=== PATIENT | female | born 1945 | race Caucasian/White ===

== ENCOUNTER 2016-04-26 20:03 | Emergency (ER) | payer MEDICARE ==
--- NOTE | 2016-04-26 21:20 | EKG REPORT ---
SEVERITY:- ABNORMAL ECG - SINUS RHYTHM FIRST DEGREE AV BLOCK : Confirmed by: Roman Fraser MD 26-Apr-2016 21:20:05
[2016-04-26] MEDS ORDERED: ASPIRIN 81 MG TABLET, CHEWABLE PO ONE (21:25)
[2016-04-26 21:38] LABS: ABSOLUTE BASOPHILS # (AUTO) 0.1 10^3/uL (0.0-0.2); ABSOLUTE EOSINOPHILS # (AUTO) 0.8 10^3/uL (0.0-0.6); ABSOLUTE LYMPHOCYTES (AUTO) 3.7 10^3/uL (0.5-4.7); ABSOLUTE MONOCYTES (AUTO) 0.8 10^3/uL (0.1-1.4); EOSINOPHILS % (AUTO) 7.3 % (0-6); HEMATOCRIT 33.5 % (36.0-47.0); HGB HCT DIFFERENCE -0.5; LYMPHOCYTES % (AUTO) 32.7 % (13-45); MEAN CORPUSCULAR HEMOGLOBIN 30.8 pg (27.0-33.4); MEAN CORPUSCULAR VOLUME 93 fl (80-97); MONOCYTES % (AUTO) 6.6 % (3-13); RED BLOOD COUNT 3.58 10^6/uL (3.72-5.28); RED CELL DISTRIBUTION WIDTH 13.6 % (11.5-14.0); SEGMENTED NEUTROPHILS % (AUTO) 52.4 % (42-78); WHITE BLOOD COUNT 11.4 10^3/uL (4.0-10.5)
[2016-04-26 21:41] LABS: ALANINE AMINOTRANSFERASE 27 U/L (9-52); ALKALINE PHOSPHATASE 92 U/L (38-126); ANION GAP 12 (5-19); ASPARTATE AMINO TRANSFERASE 16 U/L (14-36); BILIRUBIN,TOTAL 0.4 mg/dL (0.2-1.3); BLOOD UREA NITROGEN 16 mg/dL (7-20); CALCIUM 9.9 mg/dL (8.4-10.2); CARBON DIOXIDE 28 mmol/L (22-30); CHLORIDE 99 mmol/L (98-107); CREATININE RESULT 0.72 mg/dL (0.52-1.25); GLUCOSE 139 mg/dL (75-110); LIPASE 89.6 U/L (23-300); MAGNESIUM 1.7 mg/dL (1.6-2.3); POTASSIUM 4.6 mmol/L (3.6-5.0); SODIUM 139.4 mmol/L (137-145); TOTAL PROTEIN 6.9 g/dL (6.3-8.2)
[2016-04-26 21:42] LABS: CREATINE KINASE < 20 U/L (30-135)
[2016-04-26 21:52] LABS: PROTHROMBIN TIME 13.4 SEC (11.4-15.4)
[2016-04-26 21:53] LABS: CREATINE KINASE MB 0.52 ng/mL (<4.55); TROPONIN I < 0.012 ng/mL
[2016-04-26] MEDS ORDERED: ONDANSETRON HCL INJ/PF 4 MG/2 ML SDV IV ONE (23:47)
--- NOTE | 2016-04-27 00:10 | ER Document Report ---
ED General - General Chief Complaint: Palpitations Stated Complaint: PALPITATIONS TRAVEL OUTSIDE OF THE [place] IN LAST 30 DAYS: No - HPI Patient complains to provider of: palpitations Notes: Patient with a recent aortic valve replacement and bypass surgery performed [facility] proximal vertebral weeks prior to arrival patient is now currently at local intermediate rehabilitation facility. States prior to arrival developed some palpitations. Patient states this lasted for approximately 30 minutes however upon evaluating patient patient now is astigmatic denies any dizziness chest pain abdominal pain filling of passing out while palpitations were ongoing. No fevers and chills no nausea no vomiting - Related Data Allergies/Adverse Reactions: metaxalone [From Skelaxin] Allergy (Verified 04/26/16 21:22) olmesartan medoxomil [From Benicar] Allergy (Verified 04/26/16 21:22) red dye [Red Dye] Allergy (Verified 04/26/16 21:22) Sulfa (Sulfonamide Antibiotics) Allergy (Verified 04/26/16 21:22) Past Medical History - General Information source: Patient, Outside Facility Records - Social History Smoking Status: Never Smoker Chew tobacco use (# tins/day): No Frequency of alcohol use: None Drug Abuse: None Family History: CVA, Malignancy Patient has suicidal ideation: No Patient has homicidal ideation: No - Past Medical History Cardiac Medical History: Reports: Hx Coronary Artery Disease, Hx Hypertension Endocrine Medical History: Reports: Hx Diabetes Mellitus Type 2 Past Surgical History: Reports: Hx Carotid Endarterectomy, Hx Hysterectomy, Hx Orthopedic Surgery - 2 shoulder replacements - Immunizations Hx Diphtheria, Pertussis, Tetanus Vaccination: No Hx Pneumococcal Vaccination: 04/26/09 Review of Systems - Review of Systems Constitutional: No symptoms reported EENT: No symptoms reported Cardiovascular: Palpitations Respiratory: No symptoms reported Gastrointestinal: No symptoms reported Genitourinary: No symptoms reported Female Genitourinary: No symptoms reported Musculoskeletal: No symptoms reported Skin: No symptoms reported Hematologic/Lymphatic: No symptoms reported Neurological/Psychological: No symptoms reported Physical Exam - Vital signs Vitals: Resp Pulse Ox 15 99 04/26/16 20:20 04/26/16 20:20 Interpretation: Normal - General General appearance: Appears well, Alert - HEENT Head: Normocephalic, Atraumatic Eyes: Normal Pupils: PERRL - Respiratory Respiratory status: No respiratory distress Chest status: Nontender Breath sounds: Normal Chest palpation: Normal - Cardiovascular Rhythm: Regular Heart sounds: Normal auscultation Murmur: No Systolic murmur grade 1-6: 3 - Abdominal Inspection: Normal Distension: No distension Bowel sounds: Normal Tenderness: Nontender Organomegaly: No organomegaly - Back Back: Normal, Nontender - Extremities General upper extremity: Normal inspection, Nontender, Normal color, Normal ROM , Normal temperature General lower extremity: Normal inspection, Nontender, Normal color, Normal ROM , Normal temperature, Normal weight bearing. No: Claudia's sign - Neurological Neuro grossly intact: Yes Cognition: Normal Orientation: AAOx4 Oliver Coma Scale Eye Opening: Spontaneous Thanh Coma Scale Verbal: Oriented Oliver Coma Scale Motor: Obeys Commands Oliver Coma Scale Total: 15 Speech: Normal Motor strength normal: LUE, RUE, LLE, RLE Sensory: Normal - Psychological Associated symptoms: Normal affect, Normal mood - Skin Skin Temperature: Warm Skin Moisture: Dry Skin Color: Normal Course - Re-evaluation Re-evalutation: 04/27/16 00:06 Patient coming in for palpitations. Patient with a recent CABG and aortic valve replacement after which had episodes of atrial fibrillation at [facility] postop. Discussed case with Dr. Daugherty initially stated patient could be discharged home. Prior to discharge patient did have an episode of bradycardia EKG was repeated showing some signs of facial for ablation with a rate of 67 monitor that showed episode where the patient bradycardia down to the 30s. Patient during this time was astigmatic no palpitations and dizziness patient did not pass out. Again contacted Dr. Daugherty [facility] still recommend patient safe for discharge home he will follow-up with the patient in one week. Discussed this plan with patient patient agrees 04/27/16 03:16 - Vital Signs Vital signs: Temp Pulse Resp BP Pulse Ox 98.2 F 72 12 103/67 99 04/27/16 00:30 04/26/16 20:22 04/27/16 00:31 04/27/16 00:32 04/27/16 00:32 - Laboratory Result Diagrams: 04/26/16 20:22 04/26/16 20:22 Laboratory results interpreted by me: 04/26/16 04/26/16 04/27/16 20:22 20:22 00:02 WBC 11.4 H RBC 3.58 L Hgb 11.0 L Hct 33.5 L Plt Count 476 H Eosinophils % 7.3 H Absolute Eosinophils 0.8 H Glucose 139 H POC Glucose 135 H Creatine Kinase < 20 L Discharge - Discharge Clinical Impression: Palpitation Atrial fibrillation Qualifiers: Atrial fibrillation type: unspecified Qualified Code(s): I48.91 - Unspecified atrial fibrillation Condition: Good Disposition: HOME, SELF-CARE Instructions: Atrial Fibrillation ([facility]), Palpitations (Irregular or Rapid Heartrate) ([facility]) Additional Instructions: Your rhythm strips night shows signs of atrial fibrillation this morning likely why you are having palpitations. Your labwork shows no critical pathology no signs of heart damage no electrolyte imbalances. I did discuss your case with the covering technical operator at [facility]. At this time no need for any emergent admission to the hospital for emergent transfer he did recommend that she follow-up with your technical operator within about a week. Please call your technical operator tomorrow to schedule that appointment. Return to ER symptoms worsen.
[2016-04-27 00:33] VITALS: BP 103/67
--- NOTE | 2016-04-27 12:23 | EKG REPORT ---
SEVERITY:- ABNORMAL ECG - SINUS RHYTHM WITH BLOCKED APCs,CANNOT R/O SA [place] NONSPECIFIC T ABNORMALITIES, ANT-LAT LEADS : Confirmed by: Tavia Callahan 27-Apr-2016 12:23:24
== END 2016-04-27 00:38 | disposition home or self-care (01) ==
LOC: ER 20:03
DX: R00.2 Palpitations (principal); I48.91 Unspecified atrial fibrillation; I25.10 Atherosclerotic heart disease of native coronary artery without angina pectoris; I10 Essential (primary) hypertension; E11.9 Type 2 diabetes mellitus without complications; Z95.2 Presence of prosthetic heart valve; Z95.1 Presence of aortocoronary bypass graft; Z88.2 Allergy status to sulfonamides; Z90.710 Acquired absence of both cervix and uterus; Z96.619 Presence of unspecified artificial shoulder joint
CPT/HCPCS: 93005; 99285; 96374; 36415; 82553; 82962; 82550; 83690; 83735; 85025; 85610; 80053; 84484; 71020; 93010; J2405

== ENCOUNTER → 2016-04-29 | Outpatient (CLI) | payer MEDICARE ==
[2016-04-29 10:12] LABS: ARTERIAL BLOOD BASE EXCESS 0.5 mmol/L; ARTERIAL BLOOD O2 SATURATION 97.3 % (94-98)
--- NOTE | 2016-04-30 08:32 | INCOMPLETE PFT LETTER ---
On 04/29/16, [facility] I : 1945 presented to [facility] for a Pulmonary Function Test. Attempts were made to perform the test but the patient was unable to perform adequately due to pain at surgical site. ABG and DLCO completed. Please feel free to contact us for any further questions and to reschedule if desired. Sincerely, Respiratory Care Department [facility]
== END ==
LOC: RT 08:25
PROVIDERS: ATTEND Family Medicine Geriatric Medicine
DX: J42 Unspecified chronic bronchitis (principal); R91.8 Other nonspecific abnormal finding of lung field
CPT/HCPCS: 36600; 82803; 94760

== ENCOUNTER 2016-05-22 11:43 | Emergency (ER) | payer MEDICARE, OTHER ==
--- NOTE | 2016-05-22 11:59 | ER Document Report ---
ED Medical Screen (RME) - General Stated Complaint: ABSCESS ON BACK Time seen by provider: 11:57 Mode of Arrival: Ambulatory Information source: Patient Notes: 70-year-old female presents to ED for a lump on her mid back that has been there for about a year. States that he just started being painful and now yesterday it started leaking. The area is purple for the last couple days. There is a large abscess on her back. I have greeted and performed a rapid initial assessment of this patient. A comprehensive ED assessment and evaluation of the patient, analysis of test results and completion of medical decision making process will be conducted by an additional ED providers. TRAVEL OUTSIDE OF THE [place] IN LAST 30 DAYS: No - Related Data Allergies/Adverse Reactions: metaxalone [From Skelaxin] Allergy (Verified 05/22/16 11:57) olmesartan medoxomil [From Benicar] Allergy (Verified 05/22/16 11:57) red dye [Red Dye] Allergy (Verified 05/22/16 11:57) Sulfa (Sulfonamide Antibiotics) Allergy (Verified 05/22/16 11:57) Past Medical History - Past Medical History Cardiac Medical History: Reports: Hx Coronary Artery Disease, Hx Hypertension Endocrine Medical History: Reports: Hx Diabetes Mellitus Type 2 Past Surgical History: Reports: Hx Carotid Endarterectomy, Hx Hysterectomy, Hx Orthopedic Surgery - 2 shoulder replacements - Immunizations Hx Diphtheria, Pertussis, Tetanus Vaccination: No
[2016-05-22] MEDS ORDERED: CLINDAMYCIN HCL 150 MG CAPSULE PO ONE (14:33)
--- NOTE | 2016-05-22 14:34 | ER Document Report ---
HPI - HPI Patient complains to provider of: wound recheck <GLENDA ADAMES - Last Filed: 05/24/16 14:05> - HPI Patient complains to provider of: abscess Onset: Other - cyst there for years, red and leaking for several days, larger Onset/Duration: Gradual Quality of pain: Throbbing Pain Level: 3 Context: 71 yo diabetic with hx back cyst for years noticed it getting larger and more red recently since having to lay on back more, and now leaking. No fever. No myalgia's. Associated Symptoms: None Exacerbated by: Other - laying on back Relieved by: Denies Similar symptoms previously: No Recently seen / treated by doctor: No - ROS ROS below otherwise negative: Yes Systems Reviewed and Negative: Yes All other systems reviewed and negative - REPRODUCTIVE Reproductive: DENIES: : - DERM Skin Color: Normal <KIRSTY NAIDU - Last Filed: 05/24/16 17:57> Past Medical History - General Information source: Patient - Social History Smoking Status: Never Smoker Chew tobacco use (# tins/day): No Frequency of alcohol use: None Drug Abuse: None Lives with: Family Family History: CVA, Malignancy Patient has suicidal ideation: No Patient has homicidal ideation: No - Past Medical History Cardiac Medical History: Reports: Hx Coronary Artery Disease, Hx Hypertension Endocrine Medical History: Reports: Hx Diabetes Mellitus Type 2 Renal/ Medical History: Denies: Hx Peritoneal Dialysis Past Surgical History: Reports: Hx Carotid Endarterectomy, Hx Hysterectomy, Hx Orthopedic Surgery - 2 shoulder replacements - Immunizations Hx Diphtheria, Pertussis, Tetanus Vaccination: No Hx Pneumococcal Vaccination: 04/26/09 <KIRSTY NAIDU - Last Filed: 05/24/16 17:57> Vertical Provider Document - CONSTITUTIONAL Agree With Documented VS: Yes Exam Limitations: No Limitations General Appearance: No Apparent Distress - INFECTION CONTROL TRAVEL OUTSIDE OF THE [place] IN LAST 30 DAYS: No - HEENT HEENT: Normocephalic - NECK Neck: Supple - RESPIRATORY Respiratory: Breath Sounds Normal, No Respiratory Distress - CARDIOVASCULAR Cardiovascular: Regular Rate, Regular Rhythm - BACK Notes: red flucuant sebaceous abscess, 4 cm erythema, no cellulitis - MUSCULOSKELETAL/EXTREMETIES Musculoskeletal/Extremeties: YASSINE VILLALOBOS - NEURO Level of Consciousness: Awake, Alert - DERM Integumentary: Abscess <KIRSTY NAIDU - Last Filed: 05/24/16 17:57> Course - Vital Signs Vital signs: Temp Pulse Resp BP Pulse Ox 97.9 F 70 16 160/75 H 99 05/22/16 15:49 05/22/16 15:49 05/22/16 15:49 05/22/16 15:49 05/22/16 15:49 <GLENDA ADAMES - Last Filed: 05/24/16 14:05> - Re-evaluation Re-evalutation: 05/22/16 15:20 I have consulted with the supervisory physician dr crespo per [facility] APC Guidelines. <KIRSTY NAIDU - Last Filed: 05/24/16 17:57> Procedures - Incision and Drainage Back Time completed: 15:24 Type: Simple Anesthetic type: 1% Lidocaine mL's of anesthetic: 4 Blade size: 11 - x cut I&D procedure: Betadine prep applied Incision Method: Incision made by scalpel - x cut, cyst sac unabl to be retrieved but after 80 ml irrigation, only blood irrigates and palpates out, corner of 4 x 4 packed wound. Told pt that for complete resolution, may have to see surgeon to get the whole cyst removed it recurs. Amount/type of drainage: large sebaceous and pus Adult Front & Back picture: 1 - abscess site <KIRSYT NAIDU - Last Filed: 05/24/16 17:57> Discharge <GLENDA ADAMES - Last Filed: 05/24/16 14:05> <KIRSTY NAIDU - Last Filed: 05/24/16 17:57> - Discharge Clinical Impression: i and d sebaceous abscess Condition: Good Disposition: HOME, SELF-CARE Instructions: Abscess ([facility]), Post Incision and Drainage, Clindamycin ([facility]), Warm Packs ([facility]), Acetaminophen Additional Instructions: keep dressing on for 2 days wound recheck in ER on wednesday then begin showering with someone to use washclothe scrub to back and let the water irrigate it out see general surgery if this persists and keeps coming back to er if you feel sick monitor your glucoses carefully, if elevates return to ER eat with the clindamycin Please complete the patient satisfaction survey if you get one, and return it.. If you do not receive a survey, then you can go to the [facility] website, [email or web address] and place your comments about your very good care. Thank you very much. It was a pleasure being your medical provider today. Prescriptions: Clindamycin HCl [Cleocin 150 mg Capsule] 300 mg PO QID #56 capsule Referrals: SUHAS MORENO, ZEESHAN-C [Primary Care Provider] - Follow up as needed
[2016-05-22 16:06] VITALS: BP 160/75
== END 2016-05-22 15:50 | disposition home or self-care (01) ==
LOC: ER 11:43
PROC: 0H96XZZ Drainage of Back Skin, External Approach (ICD-10-PCS; principal; 2016-05-22)
DX: L02.212 Cutaneous abscess of back [any part, except buttock and flank] (principal); I25.10 Atherosclerotic heart disease of native coronary artery without angina pectoris; I10 Essential (primary) hypertension; E11.9 Type 2 diabetes mellitus without complications; Z90.710 Acquired absence of both cervix and uterus; Z96.619 Presence of unspecified artificial shoulder joint
CPT/HCPCS: 99283; 87070; 87205; 87075; 87077; 10060; A9270; 87186

== ENCOUNTER 2016-05-24 12:54 | Emergency (ER) | payer MEDICARE, OTHER ==
[2016-05-24 13:07] VITALS: BP 96/79
--- NOTE | 2016-05-24 13:10 | ER Document Report ---
ED Medical Screen (RME) - General Stated Complaint: WOUND CHECK Notes: I&D recheck initially performed wednesday I greeted and performed a rapid initial assessment of this patient. Comprehensive ED assessment and evaluation of the patient, analysis of test results and completion of the medical decision making process will be conducted by additional ED providers. TRAVEL OUTSIDE OF THE [place] IN LAST 30 DAYS: No - Related Data Allergies/Adverse Reactions: metaxalone [From Skelaxin] Allergy (Verified 05/22/16 11:57) olmesartan medoxomil [From Benicar] Allergy (Verified 05/22/16 11:57) red dye [Red Dye] Allergy (Verified 05/22/16 11:57) Sulfa (Sulfonamide Antibiotics) Allergy (Verified 05/22/16 11:57) Past Medical History - Past Medical History Cardiac Medical History: Reports: Hx Coronary Artery Disease, Hx Hypercholesterolemia, Hx Hypertension Endocrine Medical History: Reports: Hx Diabetes Mellitus Type 2 Renal/ Medical History: Denies: Hx Peritoneal Dialysis Past Surgical History: Reports: Hx Carotid Endarterectomy, Hx Hysterectomy, Hx Orthopedic Surgery - 2 shoulder replacements - Immunizations Hx Diphtheria, Pertussis, Tetanus Vaccination: No Physical Exam - Vital signs Vitals: Temp Pulse Resp BP Pulse Ox 97.8 F 69 22 H 96/79 L 97 05/24/16 13:06 05/24/16 13:06 05/24/16 13:06 05/24/16 13:06 05/24/16 13:06 Course - Vital Signs Vital signs: Temp Pulse Resp BP Pulse Ox 97.8 F 69 22 H 96/79 L 97 05/24/16 13:06 05/24/16 13:06 05/24/16 13:06 05/24/16 13:06 05/24/16 13:06
--- NOTE | 2016-05-24 14:23 | ER Document Report ---
HPI - HPI Patient complains to provider of: wound recheck Pain Level: 1 Context: pateint is 71 year old female who had an I&D of a sebaceous cyst on wednesday and is here for wound recheck. states she had had minimal drainage through the bandage but otherwise denies any pain. no fevers, chills, has been compliant with PO abx - CARDIOVASCULAR Cardiovascular: DENIES: Chest pain - REPRODUCTIVE Reproductive: DENIES: : - DERM Skin Color: Normal Past Medical History - General Information source: Patient - Social History Smoking Status: Never Smoker Chew tobacco use (# tins/day): No Frequency of alcohol use: None Drug Abuse: None Family History: CVA, Malignancy Patient has suicidal ideation: No Patient has homicidal ideation: No - Past Medical History Cardiac Medical History: Reports: Hx Coronary Artery Disease, Hx Hypercholesterolemia, Hx Hypertension Endocrine Medical History: Reports: Hx Diabetes Mellitus Type 2 Renal/ Medical History: Denies: Hx Peritoneal Dialysis Past Surgical History: Reports: Hx Carotid Endarterectomy, Hx Hysterectomy, Hx Orthopedic Surgery - 2 shoulder replacements - Immunizations Hx Diphtheria, Pertussis, Tetanus Vaccination: No Hx Pneumococcal Vaccination: 04/26/09 Vertical Provider Document - CONSTITUTIONAL Agree With Documented VS: Yes Exam Limitations: No Limitations - INFECTION CONTROL TRAVEL OUTSIDE OF THE [place] IN LAST 30 DAYS: No - RESPIRATORY O2 Sat by Pulse Oximetry: 97 - DERM Integumentary: Warm, Dry, Abscess - previous IandD of sebaccous cyst with evidence of retained contents, superficial erythema about 4cm in diameter, no edema Course - Re-evaluation Re-evalutation: 05/24/16 14:20 site emptied of retained contents and packed with 1/4in WTD packing and covered with dry gauze. can f/u with PCP or return to the ED in 2 days with family for education on wound care. - Vital Signs Vital signs: Temp Pulse Resp BP Pulse Ox 97.8 F 69 22 H 96/79 L 97 05/24/16 13:06 05/24/16 13:06 05/24/16 13:06 05/24/16 13:06 05/24/16 13:06 Discharge - Discharge Clinical Impression: Wound check, abscess Condition: Good Disposition: HOME, SELF-CARE Additional Instructions: -Packing will need to be changed in 2-3 days -Please follow up with your primary care provider or the ER for wound check in 2 days. Please bring a family member along for wound dressing education. -Continue to take your antibiotic as prescribed -You can take ibuprofen or acetaminophen as needed for pain.
== END 2016-05-24 14:34 | disposition home or self-care (01) ==
LOC: ER 12:54
DX: Z48.01 Encounter for change or removal of surgical wound dressing (principal); L02.91 Cutaneous abscess, unspecified; E11.9 Type 2 diabetes mellitus without complications; I25.10 Atherosclerotic heart disease of native coronary artery without angina pectoris; I10 Essential (primary) hypertension
CPT/HCPCS: 99282

== ENCOUNTER 2016-05-26 13:48 | Emergency (ER) | payer MEDICARE, OTHER, MEDICAID ==
[2016-05-26 13:57] VITALS: BP 151/55
--- NOTE | 2016-05-26 14:20 | ER Document Report ---
ED Medical Screen (RME) - General Stated Complaint: WOUND CHECK Time seen by provider: 14:17 Mode of Arrival: Ambulatory Information source: Patient TRAVEL OUTSIDE OF THE [place] IN LAST 30 DAYS: No - HPI Patient complains to provider of: WOUND CHECK Onset: Other - INITIALLY WEDNESDAY, THEN AGAIN WEDNESDAY Onset/Duration: Gradual Context: CYST OPENED TWO DAYS AGO AND PACKED, HERE FOR RECHECK Quality of pain: Dull Severity: Mild Pain Level: 1 Associated Symptoms: None Exacerbated by: Denies Relieved by: Denies Similar symptoms previously: Yes Recently seen / treated by doctor: Yes - Related Data Smoking: Non-smoker Frequency of alcohol use: None Drug Abuse: None Allergies/Adverse Reactions: metaxalone [From Skelaxin] Allergy (Verified 05/26/16 14:16) olmesartan medoxomil [From Benicar] Allergy (Verified 05/26/16 14:16) red dye [Red Dye] Allergy (Verified 05/26/16 14:16) Sulfa (Sulfonamide Antibiotics) Allergy (Verified 05/26/16 14:16) Past Medical History - Past Medical History Cardiac Medical History: Reports: Hx Coronary Artery Disease, Hx Hypercholesterolemia, Hx Hypertension Endocrine Medical History: Reports: Hx Diabetes Mellitus Type 2 Renal/ Medical History: Denies: Hx Peritoneal Dialysis Past Surgical History: Reports: Hx Carotid Endarterectomy, Hx Hysterectomy, Hx Orthopedic Surgery - 2 shoulder replacements - Immunizations Hx Diphtheria, Pertussis, Tetanus Vaccination: No Physical Exam - Vital signs Vitals: Temp Pulse Resp BP Pulse Ox 98.0 F 66 18 151/55 H 97 05/26/16 13:56 05/26/16 13:56 05/26/16 13:56 05/26/16 13:56 05/26/16 13:56 Course - Vital Signs Vital signs: Temp Pulse Resp BP Pulse Ox 98.0 F 66 18 151/55 H 97 05/26/16 13:56 05/26/16 13:56 05/26/16 13:56 05/26/16 13:56 05/26/16 13:56
--- NOTE | 2016-05-26 15:06 | ER Document Report ---
HPI - HPI Patient complains to provider of: WOUND CHECK Onset: Last week Onset/Duration: Sudden Quality of pain: Achy Severity: Mild Pain Level: 1 Context: HAD ABSCESS DRAINED WEDNESDAY, REPACKED WEDNESDAY. HERE FOR RECHECK. STATES CLINDAMYCIN IS MAKING HER SICK TO STOMACH. Associated Symptoms: None Exacerbated by: Denies Relieved by: Denies Similar symptoms previously: Yes Recently seen / treated by doctor: Yes - ROS ROS below otherwise negative: Yes Systems Reviewed and Negative: Yes All other systems reviewed and negative - CONSTITUTIONAL Constitutional: DENIES: Fever - EENT EENT: DENIES: Congestion - NEURO Neurology: DENIES: Headache - CARDIOVASCULAR Cardiovascular: DENIES: Chest pain - RESPIRATORY Respiratory: DENIES: Trouble Breathing - GASTROINTESTINAL Gastrointestinal: REPORTS: Nausea - WITH CLINDAMYCIN - URINARY Urinary: DENIES: Dysuria - REPRODUCTIVE Reproductive: DENIES: : - MUSCULOSKELETAL Musculoskeletal: DENIES: Extremity pain - DERM Skin Color: Normal Past Medical History - General Information source: Patient - Social History Smoking Status: Never Smoker Chew tobacco use (# tins/day): No Frequency of alcohol use: None Drug Abuse: None Lives with: Family Family History: CVA, Malignancy Patient has suicidal ideation: No Patient has homicidal ideation: No - Past Medical History Cardiac Medical History: Reports: Hx Coronary Artery Disease, Hx Hypercholesterolemia, Hx Hypertension Endocrine Medical History: Reports: Hx Diabetes Mellitus Type 2 Renal/ Medical History: Denies: Hx Peritoneal Dialysis Past Surgical History: Reports: Hx Carotid Endarterectomy, Hx Hysterectomy, Hx Orthopedic Surgery - 2 shoulder replacements - Immunizations Hx Diphtheria, Pertussis, Tetanus Vaccination: No Hx Pneumococcal Vaccination: 04/26/09 Vertical Provider Document - CONSTITUTIONAL Agree With Documented VS: Yes Exam Limitations: No Limitations - INFECTION CONTROL TRAVEL OUTSIDE OF THE [place] IN LAST 30 DAYS: No - HEENT HEENT: Atraumatic, Normocephalic - RESPIRATORY Respiratory: Breath Sounds Normal, No Respiratory Distress O2 Sat by Pulse Oximetry: 97 - CARDIOVASCULAR Cardiovascular: Regular Rate, Regular Rhythm - GI/ABDOMEN Gastrointestinal: Abdomen Soft, Abdomen Non-Tender - MUSCULOSKELETAL/EXTREMETIES Musculoskeletal/Extremeties: YASSINE VILLALOBOS - NEURO Level of Consciousness: Awake, Alert - DERM Integumentary: Warm, Dry Notes: PACKING REMOVED FROM RIGHT BACK. NO FURTHER PURULENT DRAINAGE EXPRESSED, WOUND CLEANSED AND DRESSING APPLIED. PT TOLERATED WELL. Course - Vital Signs Vital signs: Temp Pulse Resp BP Pulse Ox 98.0 F 66 18 151/55 H 97 05/26/16 13:56 05/26/16 13:56 05/26/16 13:56 05/26/16 13:56 05/26/16 13:56 Discharge - Discharge Clinical Impression: Admission for wound check of abscess, Abscess packing removal Condition: Good Disposition: HOME, SELF-CARE Additional Instructions: CHANGE DRESSING 2-3 TIMES DAILY. KEEP CLEAN AND DRY ANTIBIOTICS CHANGES DUE TO STOMACH UPSET FOLLOW UP WITH YOUR DOCTOR WEDNESDAY FOR RECHECK OR RETURN IF WOUND WORSENS, NO DRAINAGE EXPRESSED TODAY AFTER PACKING REMOVAL TODAY Prescriptions: Cephalexin [Cephalexin 500 MG Capsule] 1 cap PO QID #28 capsule
== END 2016-05-26 15:20 | disposition home or self-care (01) ==
LOC: ER 13:48
DX: Z48.01 Encounter for change or removal of surgical wound dressing (principal); L02.212 Cutaneous abscess of back [any part, except buttock and flank]; R11.0 Nausea; T36.8X5A Adverse effect of other systemic antibiotics, initial encounter; I25.10 Atherosclerotic heart disease of native coronary artery without angina pectoris; I10 Essential (primary) hypertension; E11.9 Type 2 diabetes mellitus without complications
CPT/HCPCS: 99282

== ENCOUNTER → 2016-10-28 | Outpatient (CLI) | payer MEDICARE, OTHER ==
--- NOTE | 2016-10-28 16:13 | WOMENS IMAGING REPORT ---
EXAM DESCRIPTION: BILAT SCREENING MAMMO W/CAD COMPLETED DATE/TIME: 10/28/2016 9:47 am REASON FOR STUDY: ROUTINE SCREENING; Z12.31 Z12.31 ENCNTR SCREEN MAMMOGRAM FOR MALIGNANT NEOPLASM O F SHAD COMPARISON: Multiple since 2012 TECHNIQUE: Standard craniocaudal and mediolateral oblique views of each breast recorded using [employer] l acquisition. LIMITATIONS: None. FINDINGS: Findings present which are benign by mammographic criteria. No suspicious masses, calcifi cations or architectural distortion. Pertinent benign findings: Benign left breast calcifications Read with the assistance of CAD. .[facility] - R2 Cenova Version 1.3 .[facility] - R2 Cenova Version 1.3 .[facility] - R2 Cenova Version 2.4 .[facility] [place] Cenova Version 2.4 .COUNT INCLUDES THE [facility] - R2 Fireproof Door Assembler Version 9.2 Benign mammographic findings may include one or more of the following: Smooth masses, popcorn/rim/co arse calcifications, asymmetries, post-procedure changes, and lesions with long-standing stability. IMPRESSION: BENIGN MAMMOGRAPHIC FINDINGS. BIRADS 2 BREAST DENSITY: b. There are scattered areas of fibroglandular density. BIRAD: 2 BENIGN FINDING(S) RECOMMENDATION: ROUTINE SCREENING Please consider bilateral screening tomosynthesis in October 2017 COMMENT: The patient has been notified of the results by letter per MQSA requirements. Additional no tification policies are in place for contacting patient with suspicious or incomplete findings. Quality ID #[id number]: The [employer] recommends an annual screening mammogram for women aged 40 years or over. This facility utilizes a reminder system to ensure that all patients receive reminder letters, and/or direct phone calls for appointments. This includes reminders for routine scr eening mammograms, diagnostic mammograms, or other Breast Imaging Interventions when appropriate. Th is patient will be placed in the appropriate reminder system. The [employer] (ACR) has developed recommendations for screening MRI of the breast s in certain patient populations, to be used in conjunction with mammography. Breast MRI surveillanc e may be appropriate for women with more than 20% lifetime risk of developing breast cancer as deter mined by genetic testing, significant family history of the disease, or history of mantle radiation f or Hodgkins Disease. ACR Practice Guidelines 2008. TECHNICAL DOCUMENTATION: FINDING NUMBER: (1) ASSESSMENT: (1) JOB ID: [id number] [employer]- All Rights Reserved
== END ==
LOC: WI 09:48
PROVIDERS: ATTEND Physician Assistant Medical
DX: Z12.31 Encounter for screening mammogram for malignant neoplasm of breast (principal)
CPT/HCPCS: 77067; G0202

== ENCOUNTER → 2017-01-25 | Day surgery (SDC) | payer MEDICARE, OTHER ==
[~2017-01-25] MED LIST: BUPIVACAINE HCL 0.5 % INJ/PF 30 ML SDV ONE; METHYLPREDNISOLONE ACETATE INJ 40 MG/1 ML ML ONE
--- NOTE | 2017-01-25 15:57 | RADIOLOGY REPORT (SQ) ---
EXAM DESCRIPTION: INJECT/ASPIR HIP/SHLDR/KNEE; HIP UNILATERAL-1 VIEW; FLUORO/NEEDLE PLACEMENT COMPLETED DATE/TIME: 01/25/2017 3:36 pm REASON FOR STUDY: OA RIGHT HIP (M16.11) M16.11 UNILATERAL PRIMARY OSTEOARTHRITIS, RIGHT HIP COMPARISON: None. FLUOROSCOPY TIME: 16 seconds 2 images saved to PACS. LIMITATIONS: None. PROCEDURE: SITE OF INJECTION: Anterior right hip LOCALIZING CONTRAST TYPE AND DOSE: 1 cc Isovue-300 MEDICATION TYPE AND DOSE: 80 mg Depo-Medrol Using local anesthesia and sterile technique with fluoroscopic guidance, the needle was advanced into the joint. Iodinated contrast was injected to verify intraarticular placement. This was followed by therapeutic injection of the indicated medications. The needle was removed. There were no immediat e complications. Preprocedure pain level: 10/10. Postprocedure pain level: 6/10. IMPRESSION: THERAPEUTIC INJECTION OF THE right hip JOINT ABOVE. COMMENT: Patient medication list reviewed: Yes- Quality ID# [id number]:Eligible professional attests to doc umenting in the medical record they obtained, updated, or reviewed the patient's current medications. . Quality ID [id number]: Final reports for procedures using fluoroscopy that document radiation exposure eric genesis, or exposure time and number of fluorographic images (if radiation exposure indices are not avail able) TECHNICAL DOCUMENTATION: JOB ID: [id number] [employer]- All Rights Reserved
== END ==
LOC: RAD 14:22
PROVIDERS: ATTEND Radiology Radiation Oncology
PROC: 3E0U33Z Introduction of Anti-inflammatory into Joints, Percutaneous Approach (ICD-10-PCS; principal; 2017-01-25)
DX: M16.11 Unilateral primary osteoarthritis, right hip (principal)
CPT/HCPCS: 73501; 20610; 77002; J1020

== ENCOUNTER 2017-02-14 08:13 | Observation (INO) | payer MEDICARE, OTHER ==
--- NOTE | 2017-02-14 08:48 | ER Document Report ---
ED General - General Chief Complaint: Chest Pain Stated Complaint: CHEST PAIN Time Seen by Provider: 02/14/17 08:35 Mode of Arrival: Ambulatory Information source: Patient Notes: 71-year-old female history of hypertension hyperlipidemia diabetes valve replacement presents with complaints of chest pressure that woke her up this morning. Patient notes it lasted a few minutes denies any fevers or chills admits to shortness of breath associated with it TRAVEL OUTSIDE OF THE [place] IN LAST 30 DAYS: No - HPI Onset: Just prior to arrival Onset/Duration: Sudden Quality of pain: Pressure Severity: Mild Pain Level: 1 Associated symptoms: Chest pain, Shortness of breath Exacerbated by: Denies Relieved by: Denies Similar symptoms previously: Yes Recently seen / treated by doctor: Yes - Related Data Allergies/Adverse Reactions: metaxalone [From Skelaxin] Allergy (Verified 02/14/17 08:29) olmesartan medoxomil [From Benicar] Allergy (Verified 02/14/17 08:29) red dye [Red Dye] Allergy (Verified 02/14/17 08:29) Sulfa (Sulfonamide Antibiotics) Allergy (Verified 02/14/17 08:29) Home Medications: Current Home Medications Amiodarone HCl [Pacerone] 200 mg PO DAILY 02/14/17 [History] Amlodipine Besylate 2.5 mg PO DAILY 02/14/17 [History] Atorvastatin Calcium 40 mg PO DAILY 02/14/17 [History] Carvedilol [Coreg] 6.25 mg PO BID 02/14/17 [History] Diphenhydramine HCl [Benadryl Allergy] 12.5 mg PO PRN PRN 02/14/17 [History] Furosemide 20 mg PO DAILY 02/14/17 [History] Loperamide HCl [Loperamide] 2 mg PO DAILY 02/14/17 [History] Spironolactone 50 mg PO DAILY 02/14/17 [History] Valsartan/Hydrochlorothiazide [Valsartan-Hctz 320-25 mg Tab] 320 mg PO DAILY [History] Past Medical History - Social History Smoking Status: Never Smoker Cigarette use (# per day): No Chew tobacco use (# tins/day): No Smoking Education Provided: No Family History: CVA, Malignancy - Past Medical History Cardiac Medical History: Reports: Hx Coronary Artery Disease, Hx Hypercholesterolemia, Hx Hypertension Endocrine Medical History: Reports: Hx Diabetes Mellitus Type 2 Renal/ Medical History: Denies: Hx Peritoneal Dialysis Past Surgical History: Reports: Hx Carotid Endarterectomy, Hx Hysterectomy, Hx Orthopedic Surgery - 2 shoulder replacements - Immunizations Hx Diphtheria, Pertussis, Tetanus Vaccination: No Hx Pneumococcal Vaccination: 04/26/09 Review of Systems - Review of Systems Notes: REVIEW OF SYSTEMS: CONSTITUTIONAL : Denies fever, chills, or sweats. Denies recent illness. EENT: Denies eye, ear, throat, or mouth pain or symptoms. Denies nasal or sinus congestion or discharge. Denies throat, tongue, or mouth swelling or difficulty swallowing. CARDIOVASCULAR: Admits chest pain RESPIRATORY: Denies cough, cold, or chest congestion. Denies shortness of breath, difficulty breathing, or wheezing. GASTROINTESTINAL: Denies abdominal pain or distention. Denies nausea, vomiting , or diarrhea. Denies blood in vomitus, stools, or per rectum. Denies black, tarry stools. Denies constipation. GENITOURINARY: Denies difficulty urinating, painful urination, burning, frequency, blood in urine, or discharge. FEMALE GENITOURINARY: Denies vaginal bleeding, heavy or abnormal periods, irregular periods. Denies vaginal discharge or odor. MUSCULOSKELETAL: Denies back or neck pain or stiffness. Denies joint pain or swelling. SKIN: Denies rash, lesions or sores. HEMATOLOGIC : Denies easy bruising or bleeding. LYMPHATIC: Denies swollen, enlarged glands. NEUROLOGICAL: Denies confusion or altered mental status. Denies passing out or loss of consciousness. Denies dizziness or lightheadedness. Denies headache. Denies weakness or paralysis or loss of use of either side. Denies problems with gait or speech. Denies sensory loss, numbness, or tingling. Denies seizures. PSYCHIATRIC: Denies anxiety or stress. Denies depression, suicidal ideation, or homicidal ideation. ALL OTHER SYSTEMS REVIEWED AND NEGATIVE. PHYSICAL EXAMINATION: GENERAL: Well-appearing, well-nourished and in no acute distress. HEAD: Atraumatic, normocephalic. EYES: Pupils equal round and reactive to light, extraocular movements intact, conjunctiva are normal. ENT: Nares patent, oropharynx clear without exudates. Moist mucous membranes. NECK: Normal range of motion, supple without lymphadenopathy LUNGS: Breath sounds clear to auscultation bilaterally and equal. No wheezes rales or rhonchi. HEART: Regular rate and rhythm without murmurs ABDOMEN: Soft, nontender, nondistended abdomen. No guarding, no rebound. No masses appreciated. Female : deferred Musculoskeletal: Normal range of motion, no pitting or edema. No cyanosis. NEUROLOGICAL: Cranial nerves grossly intact. Normal speech, normal gait. Normal sensory, motor exams PSYCH: Normal mood, normal affect. SKIN: Warm, Dry, normal turgor, no rashes or lesions noted. Dictation was performed using [employer] voice recognition software Physical Exam - Vital signs Vitals: Temp Pulse Resp BP Pulse Ox 98.1 F 76 16 115/56 L 99 02/14/17 08:31 02/14/17 08:31 02/14/17 08:31 02/14/17 08:31 02/14/17 08:31 Course - Re-evaluation Re-evalutation: 02/14/17 08:47 Patient given her risk factors will require an ACS rule out, lab work is pending , she is already stated that she wishes to go home 02/14/17 10:21 chest pain is resolved - Vital Signs Vital signs: Temp Pulse Resp BP Pulse Ox 98.1 F 76 14 104/70 100 02/14/17 08:31 02/14/17 08:31 02/14/17 09:34 02/14/17 09:34 02/14/17 09:34 - Laboratory Result Diagrams: 02/14/17 08:55 02/14/17 08:55 Laboratory results interpreted by me: 02/14/17 02/14/17 08:55 08:55 RBC 3.68 L MCV 98 H MCH 34.4 H Glucose 139 H - Diagnostic Test Radiology reviewed: Image reviewed, Reports reviewed - EKG Interpretation by Me EKG shows normal: Sinus rhythm, [place], Intervals, QRS Complexes Rate: Bradycardia Rhythm: A.Fib Discharge - Discharge Clinical Impression: Bradycardia Chest pain Qualifiers: Chest pain type: unspecified Qualified Code(s): R07.9 - Chest pain, unspecified Condition: Stable Disposition: ADMITTED OBSERVATION Admitting Provider: Hospitalist Unit Admitted: Telemetry
[2017-02-14] MEDS ORDERED: ASPIRIN 81 MG TABLET, CHEWABLE PO ONE (09:19)
--- NOTE | 2017-02-14 09:21 | EKG REPORT ---
SEVERITY:- ABNORMAL ECG - SINUS RHYTHM SUPRAVENTRICULAR BIGEMINY FIRST DEGREE AV BLOCK : Confirmed by: Gardenia Sargent MD 14-Feb-2017 09:20:49
[2017-02-14 09:46] LABS: ABSOLUTE BASOPHILS # (AUTO) 0.1 10^3/uL (0.0-0.2); ABSOLUTE EOSINOPHILS # (AUTO) 0.4 10^3/uL (0.0-0.6); ABSOLUTE LYMPHOCYTES (AUTO) 2.4 10^3/uL (0.5-4.7); ABSOLUTE MONOCYTES (AUTO) 0.5 10^3/uL (0.1-1.4); ABSOLUTE NEUT (AUTO) 3.9 10^3/uL (1.7-8.2); BASOPHILS % (AUTO) 0.9 % (0-2); EOSINOPHILS % (AUTO) 5.3 % (0-6); HEMATOCRIT 36.2 % (36.0-47.0); HEMOGLOBIN 12.7 g/dL (12.0-15.5); HGB HCT DIFFERENCE 1.9; LYMPHOCYTES % (AUTO) 33.2 % (13-45); MEAN CORPUSCULAR HEMOGLOBIN 34.4 pg (27.0-33.4); MEAN CORPUSCULAR VOLUME 98 fl (80-97); MONOCYTES % (AUTO) 6.6 % (3-13); RED BLOOD COUNT 3.68 10^6/uL (3.72-5.28); RED CELL DISTRIBUTION WIDTH 12.5 % (11.5-14.0); WHITE BLOOD COUNT 7.2 10^3/uL (4.0-10.5)
[2017-02-14 09:52] LABS: ALANINE AMINOTRANSFERASE 19 U/L (9-52); ALBUMIN 4.2 g/dL (3.5-5.0); ALKALINE PHOSPHATASE 72 U/L (38-126); ANION GAP 11 (5-19); ASPARTATE AMINO TRANSFERASE 18 U/L (14-36); BILIRUBIN,DIRECT 0.4 mg/dL (0.0-0.4); BILIRUBIN,TOTAL 0.6 mg/dL (0.2-1.3); BLOOD UREA NITROGEN 15 mg/dL (7-20); CALCIUM 9.6 mg/dL (8.4-10.2); CARBON DIOXIDE 29 mmol/L (22-30); CHLORIDE 103 mmol/L (98-107); CREATINE KINASE 36 U/L (30-135); CREATININE RESULT 0.89 mg/dL (0.52-1.25); GLUCOSE 139 mg/dL (75-110); POTASSIUM 4.5 mmol/L (3.6-5.0); SODIUM 142.8 mmol/L (137-145); TOTAL PROTEIN 7.4 g/dL (6.3-8.2)
[2017-02-14 10:04] LABS: CREATINE KINASE MB 0.52 ng/mL (<4.55)
--- NOTE | 2017-02-14 10:06 | RADIOLOGY REPORT (SQ) ---
EXAM DESCRIPTION: CHEST SINGLE VIEW COMPLETED DATE/TIME: 02/14/2017 9:49 am REASON FOR STUDY: CP COMPARISON: CT chest 10/08/2007 Chest films 02/07/2009, 05/16/2014, 04/26/2016 EXAM PARAMETERS: NUMBER OF VIEWS: One view. TECHNIQUE: Single frontal radiographic view of the chest acquired. RADIATION DOSE: NA LIMITATIONS: None. FINDINGS: LUNGS AND PLEURA: No opacities, masses or pneumothorax. No pleural effusion. MEDIASTINUM AND HILAR STRUCTURES: No masses. Contour normal. HEART AND VASCULAR STRUCTURES: Heart normal in size. Normal vasculature. BONES: Osteopenic. No acute findings HARDWARE: Old sternotomy for CABG. OTHER: No other significant finding. IMPRESSION: NO ACUTE RADIOGRAPHIC FINDING IN THE CHEST. TECHNICAL DOCUMENTATION: JOB ID: [id number]
[2017-02-14 10:12] LABS: TROPONIN I < 0.012 ng/mL
[2017-02-14 11:34] LABS: APPEARANCE,URINE CLEAR; BILIRUBIN,URINE NEGATIVE (NEGATIVE); GLUCOSE, URINE NEGATIVE (NEGATIVE); KETONES,URINE NEGATIVE (NEGATIVE); LEUKOCYTE ESTERASE,URINE NEGATIVE (NEGATIVE); NITRITE,URINE NEGATIVE (NEGATIVE); PROTEIN,URINE NEGATIVE (NEGATIVE); URINE SPECIFIC GRAVITY 1.006; UROBILINOGEN,URINE NEGATIVE mg/dL (<2.0)
[2017-02-14] MEDS ORDERED: INFLUENZA ADLT QUAD (36MOS+) 2017-18 VAC 0.5 ML SYR IM PRN (13:09)
[2017-02-14] MEDS ORDERED: ATROPINE SULFATE INJ 1 MG/10 ML DISP.SYRIN IV ONE (15:01)
[2017-02-14] MEDS ORDERED: DEXTROSE 50%-WATER 25 GM/50 ML DISP.SYRIN IV PRN ×2 (16:45)
[2017-02-14] MEDS ORDERED: DEXTROSE 40% GEL 15 GM TUBE PO PRN ×2 (16:45)
[2017-02-14] MEDS ORDERED: INSULIN LISPRO 100 UNIT/ML 3 ML VIAL SUBCUT PRN (16:45)
[2017-02-14] MEDS ORDERED: GLUCAGON,HUMAN RECOMB 1 MG INJ IM PRN (16:45)
--- NOTE | 2017-02-14 16:49 | PDOC H&P ---
History of Present Illness Admission Date/PCP: 02/14/17 10:26 IBAN UMANA Patient complains of: chest pain History of Present Illness: EVA HOUSE is a 71 year old female past medical history of ATao moe, recently had a pig valve placed about a year ago for aortic stenosis, history of CVA, diabetes, was at home this morning and woke up feeling her heart was beating fast and she started having some chest pain, dull achy, non-radiating, sudden pressure. States she sees Dr. Bustamante [phone] patient denies any recent fevers, chills, abdominal pain, shortness of breath, weakness, syncope, numbness and tingling. Patient states chest pain had resolved now. She was brought to the emergency room to be evaluated. In the ER patient was found to have a heart rate of 30s-40s currently heart rate is in the 50s. Past Medical History Cardiac Medical History: Reports: Atrial Fibrillation, Coronary Artery Disease, Hyperlipidema, Hypertension, Heart Murmur Endocrine Medical History: Reports: Diabetes Mellitus Type 2, Obesity Musculoskeltal Medical History: Reports: Arthritis Past Surgical History Past Surgical History: Reports: Carotid Endarterectomy, Hysterectomy, Orthopedic Surgery - 2 shoulder replacements, Valve Replacement - pig valve for Social History Smoking Status: Never Smoker Frequency of Alcohol Use: None Hx Recreational Drug Use: No Drugs: None Hx Prescription Drug Abuse: No - Advance Directive Resuscitation Status: Full Code Family History Family History: CVA, Malignancy Parental Family History Reviewed: Yes Children Family History Reviewed: Unknown Sibling(s) Family History Reviewed.: Yes Medication/Allergy Home Medications: Amiodarone HCl [Pacerone] 100 mg PO DAILY 02/14/17 Amlodipine Besylate 2.5 mg PO DAILY 02/14/17 Aspirin [Aspirin 81 mg Chewable Tablet] 81 mg PO DAILY 02/14/17 Atorvastatin Calcium 40 mg PO QHS 02/14/17 Carvedilol [Coreg] 6.25 mg PO BID 02/14/17 Furosemide 20 mg PO DAILY 02/14/17 Ibuprofen 600 mg PO DAILY 02/14/17 Loperamide HCl [Loperamide] 2 mg PO DAILY 02/14/17 Spironolactone 50 mg PO DAILY 02/14/17 Allergies/Adverse Reactions: metaxalone [From Skelaxin] Allergy (Verified 02/14/17 08:29) olmesartan medoxomil [From Benicar] Allergy (Verified 02/14/17 08:29) red dye [Red Dye] Allergy (Verified 02/14/17 08:29) Sulfa (Sulfonamide Antibiotics) Allergy (Verified 02/14/17 08:29) Review of Systems Constitutional: PRESENT: as per HPI, fatigue, weakness Eyes: ABSENT: as per HPI, visual disturbances, other Cardiovascular: PRESENT: as per HPI, chest pain, dyspnea on exertion, orthropnea , palpitations. ABSENT: edema Physical Exam Vital Signs: Temp Pulse Resp BP Pulse Ox 98.2 F 114 H 18 102/42 L 100 02/14/17 12:26 02/14/17 12:26 02/14/17 12:26 02/14/17 12:26 02/14/17 12:26 General appearance: PRESENT: no acute distress, well-developed, well-nourished Head exam: PRESENT: atraumatic, normocephalic Eye exam: PRESENT: conjunctiva pink, EOMI, PERRLA. ABSENT: scleral icterus Ear exam: PRESENT: normal external ear exam Mouth exam: PRESENT: moist, neck supple, tongue midline Neck exam: ABSENT: carotid bruit, JVD, lymphadenopathy, thyromegaly Respiratory exam: PRESENT: clear to auscultation caroline. ABSENT: rales, rhonchi, wheezes Cardiovascular exam: PRESENT: bradycardia, +S1, +S2. ABSENT: diastolic murmur, rubs, systolic murmur Pulses: PRESENT: normal dorsalis pedis pul Vascular exam: PRESENT: normal capillary refill GI/Abdominal exam: PRESENT: normal bowel sounds, soft. ABSENT: distended, guarding, mass, organolmegaly, rebound, tenderness Rectal exam: PRESENT: deferred Extremities exam: PRESENT: full ROM. ABSENT: calf tenderness, clubbing, pedal edema Neurological exam: PRESENT: alert, awake, oriented to person, oriented to place , oriented to time, oriented to situation, CN II-XII grossly intact. ABSENT: motor sensory deficit Psychiatric exam: PRESENT: appropriate affect, normal mood. ABSENT: homicidal ideation, suicidal ideation Skin exam: PRESENT: dry, intact, warm. ABSENT: cyanosis, rash Results Laboratory Results: 02/14/17 11:00 Urine Color STRAW Urine Appearance CLEAR Urine pH 5.0 Ur Specific [place] 1.006 Urine Protein NEGATIVE Urine Glucose (UA) NEGATIVE Urine Ketones NEGATIVE Urine Blood NEGATIVE Urine Nitrite NEGATIVE Ur Leukocyte Esterase NEGATIVE Urine WBC (Auto) 0 EKG Comments: Patient had a EKG at 1245 that showed that she had sinus rhythm rate 50, Mobitz 1 AV block. Patient was asymptomatic. Denies shortness of breath, denies chest Impressions: Chest X-Ray 02/14/17 09:19 IMPRESSION: NO ACUTE RADIOGRAPHIC FINDING IN THE CHEST. Assessment & Plan - Diagnosis (1) Bradycardia Is this a current diagnosis for this admission?: Yes Plan: HR was 30-40's in ER. For me it was in the 50's. She is on 2 betablockers and amiodarone. EKG showed first-degree heart block Mobitz 1. Patient was asymptomatic, no shortness of breath no syncope no chest pain. I did ask the patient was a possibility that she could have taken an extra pill she states no she is very compliant in taking her medication in which she takes all at one time once a day. (2) Chest pain Qualifiers: Chest pain type: unspecified Qualified Code(s): R07.9 - Chest pain, unspecified Is this a current diagnosis for this admission?: Yes Plan: Patient's chest pain has resolved. Suspect some atrial fibrillation with now bradycardia. Patient did receive aspirin in the ER. She did not need glycerin. Denies any shortness of breath denies pain radiating down her arm. Will obtain EKGs as needed for rhythm changes. Will obtain an echocardiogram as soon as possible (3) Aortic stenosis Qualifiers: Cardiac valve disease etiology: etiology unspecified Qualified Code(s): I35.0 - Nonrheumatic aortic (valve) stenosis Is this a current diagnosis for this admission?: No Plan: Patient has a PEG valve placed no anticoagulation needed. She is to follow-up with Dr. Dianna Blanco who is her dietary assistant. (4) CAD (coronary artery disease) Qualifiers: Coronary Disease-Associated Artery/Lesion type: [place] artery [place] vs. transplanted heart: [place] heart Associated angina: angina presence unspecified Qualified Code(s): I25.10 - Atherosclerotic heart disease of [place] coronary artery without angina pectoris Is this a current diagnosis for this admission?: Yes Plan: Continue cardiac medications, statins, aspirin. Patient was offered to see the dietary assistant here and she said that she just wanted to be monitored on the monitor tonight and if she would need further cardiac interventions she would want to be transferred to [place] under the advisement of Dr. Bustamante [phone] (5) CVA (cerebral vascular accident) Qualifiers: CVA mechanism: unspecified Qualified Code(s): I63.9 - Cerebral infarction, unspecified (6) Diabetes Qualifiers: Diabetes mellitus type: type 2 Diabetes mellitus complication status: with unspecified complications Diabetes mellitus correction insulin use: unspecified correction insulin use status Qualified Code(s): E11.8 - Type 2 diabetes mellitus with unspecified complications Is this a current diagnosis for this admission?: Yes Plan: Accucheck 4 times a day and prn. with SSI - Time Time Spent: 50 to 70 Minutes Medications reviewed and adjusted accordingly: Yes Anticipated discharge: Home Within: within 24 hours
[2017-02-14] MEDS ORDERED: ATROPINE SULFATE INJ 1 MG/1 ML VIAL IV ONE (17:30)
--- NOTE | 2017-02-14 20:36 | EKG REPORT ---
SEVERITY:- ABNORMAL ECG - SINUS RHYTHM MOBITZ I AV BLOCK ([place]) : Confirmed by: Gardenia Sargent MD 14-Feb-2017 20:35:21
[2017-02-15 06:03] LABS: HEMATOCRIT 32.2 % (36.0-47.0); HEMOGLOBIN 11.4 g/dL (12.0-15.5); MEAN CORPUSCULAR HEMOGLOBIN 34.1 pg (27.0-33.4); MEAN CORPUSCULAR HGB CONC 35.3 g/dL (32.0-36.0); MEAN CORPUSCULAR VOLUME 96 fl (80-97); RED BLOOD COUNT 3.34 10^6/uL (3.72-5.28); RED CELL DISTRIBUTION WIDTH 12.3 % (11.5-14.0); WHITE BLOOD COUNT 9.4 10^3/uL (4.0-10.5)
[2017-02-15 06:31] LABS: ANION GAP 10 (5-19); BLOOD UREA NITROGEN 19 mg/dL (7-20); CALCIUM 9.3 mg/dL (8.4-10.2); CARBON DIOXIDE 27 mmol/L (22-30); CHLORIDE 104 mmol/L (98-107); CHOLESTEROL 192.21 mg/dL (0-200); CREATININE RESULT 0.88 mg/dL (0.52-1.25); Direct HDL 46 mg/dL (>40); GLUCOSE 112 mg/dL (75-110); PHOSPHORUS 3.9 mg/dL (2.5-4.5); POTASSIUM 4.9 mmol/L (3.6-5.0); SODIUM 140.5 mmol/L (137-145); TRIGLYCERIDES 114 mg/dL (<150)
[2017-02-15 06:41] LABS: DIRECT LDL 131 mg/dL (<100)
[2017-02-15] MEDS ORDERED: ASPIRIN 81 MG TABLET, CHEWABLE PO SCH (10:00)
[2017-02-15] MEDS ORDERED: AMIODARONE HCL 200 MG TABLET PO SCH (10:00)
[2017-02-15] MEDS ORDERED: ASPIRIN 81 MG TABLET, ENT COATED PO SCH (10:00)
[2017-02-15] MEDS ORDERED: CARVEDILOL 6.25 MG TABLET PO SCH (10:00)
[2017-02-15] MEDS ORDERED: AMLODIPINE BESYLATE 2.5 MG TABLET PO SCH (10:00)
[2017-02-15] MEDS ORDERED: ATORVASTATIN CALCIUM 40 MG TABLET PO SCH (10:00)
--- NOTE | 2017-02-15 10:00 | XCELERA REPORT ---
[address] [address] Transthoracic Echocardiogram Report Name: EVA HOUSE I Age: 71 yrs Gender: Female : 1945 Patient Status: Inpatient Patient Location: [address] [place] [address] Study Date: 02/14/2017 08:08 PM Height: 63 in Weight: 177 lb BSA: 1.8 m2 Procedure: A complete two-dimensional transthoracic echocardiogram was performed (2D, M-mode, spectral and color flow Doppler). The study was technically difficult with many images being suboptimal in quality. Reason For Study: LV Function, size, wall thickness,Valve Function Ordering Physician: ZEESHAN MC Performed By: Ruy Anderson Interpretation Summary The study was technically difficult with many images being suboptimal in quality. The left ventricular ejection fraction is preserved. Consider additional methods to assess LVEF such as MUGA scan, CTA heart, cardiac MRI, SCOTTY, etc. if clinically indicated. The left ventricle is grossly normal size. There is borderline concentric left ventricular hypertrophy. Regional wall motion abnormalities cannot be excluded due to limited visualization. LV diastolic function could not be adequately assessed. The right ventricular systolic function is normal. The left atrium is moderately dilated. The right atrium is mildly dilated. There is moderate mitral leaflet calcification. There is mild mitral stenosis There is a mild amount of mitral regurgitation Artic valve not well visualised and not well dopplered.There is probable moderate aortic stenosis. There is subaortic outflow tract obstruction. [place] to be not severe. There is a trace amount of aortic regurgitation There is a moderate amount of tricuspid regurgitation There is moderate pulmonary hypertension by echo Right ventricular systolic pressure is estimated to be elevated at 40- 50mmHg. The aortic root is not well visualized. The inferior vena cava appeared normal and decreased < 50% with respiration (RAP 10-15 mmHg) There is no pericardial effusion. MMode/2D Measurements & Calculations RVDd: 2.0 cm LVIDd: 4.3 cm FS: 26.7 % Ao root diam: 1.9 cm IVSd: 0.98 cm LVIDs: 3.1 cm EDV(Teich): 81.8 ml LVPWd: 1.0 cm ESV(Teich): 38.8 ml Ao root area: 2.8 cm2 EF(Teich): 52.5 % LA dimension: 4.6 cm LVOT diam: 1.5 cm LVOT area: 1.8 cm2 Doppler Measurements & Calculations MV E max geronimo: Ao V2 max: LV V1 max PG: SV(LVOT): 158.4 cm/sec 397.4 cm/sec 7.1 mmHg 55.9 ml Ao max P.2 mmHgLV V1 mean PG: Ao V2 mean: 4.0 mmHg 243.2 cm/sec LV V1 max: Ao mean P.0 cm/sec 29.2 mmHg LV V1 mean: Ao V2 VTI: 78.8 cm 91.2 cm/sec DIANA(I,D): 0.71 cm2 LV V1 VTI: 31.8 cm DIANA(V,D): 0.59 cm2 PA V2 max: TR max geronimo: RAP systole: 79.5 cm/sec 280.3 cm/sec 10.0 mmHg PA max P.5 mmHg TR max P.4 mmHg RVSP(TR): 41.4 mmHg Left Ventricle The left ventricle is grossly normal size. There is borderline concentric left ventricular hypertrophy. The left ventricular ejection fraction is preserved. Consider additional methods to assess LVEF such as MUGA scan, CTA heart, cardiac MRI, SCOTTY, etc. if clinically indicated. LV diastolic function could not be adequately assessed. Regional wall motion abnormalities cannot be excluded due to limited visualization. Right Ventricle The right ventricle is grossly normal size. The right ventricular systolic function is normal. Atria The right atrium is mildly dilated. The left atrium is moderately dilated. Interarterial septum not well visualized and not well dopplered. Cannot comment on ASD/PFO presence. Mitral Valve There is moderate mitral leaflet calcification. There is mild mitral stenosis. There is a mild amount of mitral regurgitation. Aortic Valve The aortic valve is not well visualized secondary to technical limitations. There is moderate aortic stenosis. There is Moderate subvalvular aortic stenosis. There is a trace amount of aortic regurgitation. There is a bioprosthetic aortic valve. Tricuspid Valve The tricuspid valve is not well visualized secondary to technical limitations. No significant tricuspid stenosis. There is a moderate amount of tricuspid regurgitation. There is moderate pulmonary hypertension by echo. Right ventricular systolic pressure is estimated to be elevated at 40-50mmHg. Pulmonic Valve The pulmonic valve is not well visualized. Great Vessels The aortic root is not well visualized. The inferior vena cava appeared normal and decreased < 50% with respiration (RAP 10-15 mmHg). Effusions There is no pericardial effusion. : ZEESHAN MC > Tavia Callahan
--- NOTE | 2017-02-15 11:59 | PDOC TRANSFER SUMMARY ---
General Admission Date/PCP: 02/14/17 11:32 IBAN UMANA Admission Date: 02/14/17 Transfer Date: 02/15/17 Accepting Facility: [facility] Accepting Physician: Dr. Bustamante Resuscitation Status: Full Code - Transfer Diagnosis (1) Bradycardia Is this a current diagnosis for this admission?: Yes (2) Chest pain Is this a current diagnosis for this admission?: Yes (3) Aortic stenosis Is this a current diagnosis for this admission?: No (4) CAD (coronary artery disease) Is this a current diagnosis for this admission?: Yes (6) Diabetes Is this a current diagnosis for this admission?: Yes - Transfer Medications Home Medications: Amiodarone HCl [Pacerone] 100 mg PO DAILY 02/14/17 Amlodipine Besylate 2.5 mg PO DAILY 02/14/17 Aspirin [Aspirin 81 mg Chewable Tablet] 81 mg PO DAILY 02/14/17 Atorvastatin Calcium 40 mg PO QHS 02/14/17 Carvedilol [Coreg] 6.25 mg PO BID 02/14/17 Furosemide 20 mg PO DAILY 02/14/17 Ibuprofen 600 mg PO DAILY 02/14/17 Loperamide HCl [Loperamide] 2 mg PO DAILY 02/14/17 Spironolactone 50 mg PO DAILY 02/14/17 Transfer Medications: Current Medications Amiodarone HCl (Cordarone 200 Mg Tablet) 100 mg PO DAILY [facility] Stop: 03/17/17 09:59 Last Admin: 02/15/17 10:11 Dose: Not Given Amlodipine Besylate (Norvasc 2.5 Mg Tablet) 2.5 mg PO DAILY [facility] Stop: 03/17/17 09:59 Last Admin: 02/15/17 10:11 Dose: Not Given Aspirin (Aspirin 81 Mg Chewable Tablet) 81 mg PO DAILY [facility] Stop: 03/17/17 09:59 Last Admin: 02/15/17 10:29 Dose: 81 mg Atorvastatin Calcium (Lipitor 40 Mg Tablet) 40 mg PO DAILY [facility] Stop: 03/17/17 09:59 Last Admin: 02/15/17 10:28 Dose: 40 mg Carvedilol (Coreg 6.25 Mg Tablet) 6.25 mg PO DAILY [facility] Stop: 03/17/17 09:59 Last Admin: 02/15/17 10:11 Dose: Not Given Dextrose (Dextrose Inj 50% Syringe (25 Gm/50 Ml)) 12.5 gm IV PRN PRN; Protocol PRN Reason: FOR BG 50-69 IN ALERT PATIENT Stop: 03/16/17 16:44 Dextrose (Dextrose Inj 50% Syringe (25 Gm/50 Ml)) 25 gm IV PRN PRN PRN Reason: Protocol Stop: 03/16/17 16:44 Glucagon (Glucagen Inj 1 Mg Vial) 1 mg IM PRN PRN; Protocol PRN Reason: Evaluate for BG < 70 Stop: 03/16/17 16:44 Glucose (Glutose 40% Gel 15 Gm Tube) 15 gm PO PRN PRN; Protocol PRN Reason: FOR BG 50-69 IN ALERT PATIENT Stop: 03/16/17 16:44 Glucose (Glutose 40% Gel 15 Gm Tube) 30 gm PO PRN PRN; Protocol PRN Reason: FOR BG < 50 IN ALERT PATIENT Stop: 03/16/17 16:44 Influenza Virus Vaccine Quadrival (Fluzone Adlt Quad [id number] Vac 0.5 Ml Syr) 0.5 ml IM .DISCHARGE PRN PRN Reason: THIS MED IS NOT "PRN" Stop: 03/16/17 13:08 Insulin Human Lispro (Humalog Insulin 100 Unit/1 Ml 3 Ml Vial) 0 - 12 unit SUBCUT [id number] PRN PRN Reason: Protocol Stop: 03/16/17 16:44 Sodium Chloride (Saline Flush 2.5 Ml Monoject Prefil Syrin) 2.5 ml IV Q8 [facility] Stop: 03/16/17 13:59 Last Admin: 02/15/17 05:39 Dose: Not Given - Allergies Allergies/Adverse Reactions: metaxalone [From Skelaxin] Allergy (Verified 02/14/17 08:29) olmesartan medoxomil [From Benicar] Allergy (Verified 02/14/17 08:29) red dye [Red Dye] Allergy (Verified 02/14/17 08:29) Sulfa (Sulfonamide Antibiotics) Allergy (Verified 02/14/17 08:29) - Diet/Activity Discharge Diet: Cardiac Hospital Course Hospital Course: This is a 71-year-old white female with past medical history A. fib, aortic stenosis with a valve replacement for pig valve about a year ago was at home yesterday started feeling her heartbeat fast having some dull achy chest pain sudden pressure so she called 911 and came to the ER to be evaluated. In the emergency room she was found to have bradycardia heart rate was 30s and 40s. She denies syncope, numbness or tingling, shortness of breath, abdominal pain, fever chills nausea vomiting. In the ER she was given baby aspirin in our heart rate came up to 50s. Patient and family states that if she was to need any cardiac intervention like a pacemaker or any cardiac intervention she wanted to be transferred to Dr. Bustamante and Jo Beltran in [place]. I called and spoke with him today he is client application support engineer for his service and states that he would be happy to accept this patient as a transfer for us to send her to him and he will take care of her. Her recent achy EKG showed bradycardia with Wenckebach rate of 49. Patient's blood pressure was 98/48. We also held her beta blockers and antihypertensive medication as well as the amiodarone today. Echocardiogram was done and read by Dr. Callahan. She had moderate amount of tricuspid regurgitation, moderate pulmonary hypertension, right ventricular systolic pressures 40-50 mmHg. She is also had cyclic troponins that were negative and a clear chest x-ray. Appreciate Dr. Bustamante assistance and acceptance of this patient. Patient is stable for transfer via ground EMS. Patient and family updated. Physical Exam Vital Signs: Temp Pulse Resp BP Pulse Ox 98.1 F 109 H 17 114/45 L 100 02/15/17 07:46 02/15/17 07:46 02/15/17 07:46 02/15/17 07:46 02/15/17 07:46 Intake & Output 02/14/17 02/15/17 02/16/17 06:59 06:59 06:59 Intake Total 1060 Output Total 700 Balance 360 General appearance: PRESENT: no acute distress, well-developed, well-nourished Head exam: PRESENT: atraumatic, normocephalic Eye exam: PRESENT: conjunctiva pink, EOMI, PERRLA. ABSENT: scleral icterus Ear exam: PRESENT: normal external ear exam Mouth exam: PRESENT: moist, tongue midline Neck exam: ABSENT: carotid bruit, JVD, lymphadenopathy, thyromegaly Respiratory exam: PRESENT: clear to auscultation caroline. ABSENT: rales, rhonchi, wheezes Cardiovascular exam: PRESENT: bradycardia, diastolic murmur, irregular rhythm. ABSENT: rubs, systolic murmur Pulses: PRESENT: normal dorsalis pedis pul Vascular exam: PRESENT: normal capillary refill GI/Abdominal exam: PRESENT: normal bowel sounds, soft. ABSENT: distended, guarding, mass, organolmegaly, rebound, tenderness Rectal exam: PRESENT: deferred Extremities exam: PRESENT: full ROM. ABSENT: calf tenderness, clubbing, pedal edema Musculoskeletal exam: PRESENT: ambulatory Neurological exam: PRESENT: alert, awake, oriented to person, oriented to place , oriented to time, oriented to situation, CN II-XII grossly intact. ABSENT: motor sensory deficit Psychiatric exam: PRESENT: appropriate affect, normal mood. ABSENT: homicidal ideation, suicidal ideation Skin exam: PRESENT: dry, intact, warm. ABSENT: cyanosis, rash Results Laboratory Results: 02/15/17 05:17 02/15/17 05:17 02/15/17 02/15/17 05:17 05:17 WBC 9.4 RBC 3.34 L Hgb 11.4 L Hct 32.2 L MCV 96 MCH 34.1 H MCHC 35.3 RDW 12.3 Plt Count 189 Sodium 140.5 Potassium 4.9 Chloride 104 Carbon Dioxide 27 Anion Gap 10 BUN 19 Creatinine 0.88 Est GFR ( Amer) > 60 Est GFR (Non-Af Amer) > 60 Glucose 112 H Calcium 9.3 Phosphorus 3.9 Triglycerides 114 Cholesterol 192.21 LDL Cholesterol Direct 131 H VLDL Cholesterol 23.0 HDL Cholesterol 46 02/14/17 13:45 Troponin I < 0.012 Impressions: Chest X-Ray 02/14/17 09:19 IMPRESSION: NO ACUTE RADIOGRAPHIC FINDING IN THE CHEST.
[2017-02-15 12:07] VITALS: BP 100/38
--- NOTE | 2017-02-15 21:40 | EKG REPORT ---
SEVERITY:- ABNORMAL ECG - SECOND DEGREE AV BLOCK MOBITZ TYPE 1 SINUS RHYTHM : Confirmed by: Tavia Callahan 15-Feb-2017 21:39:42
== END 2017-02-15 13:52 | disposition short-term general hospital (02) ==
LOC: ER 08:13 → UNDOADMOB 10:26 → EH 10:26 → 4S 12:18 → EH 12:18
DX: R07.89 Other chest pain (principal); R00.1 Bradycardia, unspecified; I35.0 Nonrheumatic aortic (valve) stenosis; I25.10 Atherosclerotic heart disease of native coronary artery without angina pectoris; E11.8 Type 2 diabetes mellitus with unspecified complications; I27.20 Pulmonary hypertension, unspecified; I07.1 Rheumatic tricuspid insufficiency; I44.1 Atrioventricular block, second degree; I48.91 Unspecified atrial fibrillation; Z79.82 Long term (current) use of aspirin; Z79.899 Other long term (current) drug therapy; Z95.3 Presence of xenogenic heart valve; Z86.73 Personal history of transient ischemic attack (TIA), and cerebral infarction without residual deficits
CPT/HCPCS: 93005 ×3; 99285; 36415 ×2; 82553; 82962 ×2; 82550; 84100; 85025; 85027; 80048; 80053; 81001; 84484; 80061; 93306; 71010; 93010 ×2; A9270 ×2; J3490; J0461

== ENCOUNTER 2018-02-17 12:41 | Observation (INO) | payer MEDICARE, OTHER ==
--- NOTE | 2018-02-17 13:46 | ER Document Report ---
ED Medical Screen (RME) - General Chief Complaint: Chest Pain Stated Complaint: CHEST PAIN Time Seen by Provider: 02/17/18 13:31 TRAVEL OUTSIDE OF THE [place] IN LAST 30 DAYS: No - HPI Notes: 02/17/18 13:45 Chest pain last night for 10 minutes going down the left side of her arm currently chest pain-free - Related Data Allergies/Adverse Reactions: metaxalone [From Skelaxin] Allergy (Verified 02/14/17 08:29) olmesartan medoxomil [From Benicar] Allergy (Verified 02/14/17 08:29) red dye [Red Dye] Allergy (Verified 02/14/17 08:29) Sulfa (Sulfonamide Antibiotics) Allergy (Verified 02/14/17 08:29) Past Medical History - Social History Frequency of alcohol use: None Drug Abuse: None - Past Medical History Cardiac Medical History: Reports: Hx Atrial Fibrillation, Hx Coronary Artery Disease, Hx Hypercholesterolemia, Hx Hypertension, Hx Heart Murmur Endocrine Medical History: Reports: Hx Diabetes Mellitus Type 2 Renal/ Medical History: Denies: Hx Peritoneal Dialysis Musculoskeltal Medical History: Reports Hx Arthritis Past Surgical History: Reports: Hx Cardiac Surgery - pacemaker, valve transplant , Hx Carotid Endarterectomy, Hx Hysterectomy, Hx Orthopedic Surgery - 2 shoulder replacements, Hx Valve Replacement - pig valve for - Immunizations Hx Diphtheria, Pertussis, Tetanus Vaccination: No History of Influenza Vaccine for 01/2017 - 06/2017 Season: No Review of Systems - Review of Systems Cardiovascular: Chest pain -: Yes All other systems reviewed and negative Physical Exam - Vital signs Vitals: Temp Pulse Resp BP Pulse Ox 98.4 F 78 16 145/65 H 100 02/17/18 12:49 02/17/18 12:49 02/17/18 12:49 02/17/18 12:49 02/17/18 12:49 - Respiratory Respiratory status: No respiratory distress Chest status: Nontender Breath sounds: Normal Chest palpation: Normal - Cardiovascular Rhythm: Regular Murmur: Yes Systolic murmur grade 1-6: 3 Course - Vital Signs Vital signs: Temp Pulse Resp BP Pulse Ox 98.4 F 78 16 145/65 H 100 02/17/18 12:49 02/17/18 12:49 02/17/18 12:49 02/17/18 12:49 02/17/18 12:49 Doctor's Discharge - Discharge Referrals: SUHAS MORENO, NEGATIVE CHECKER-C [Primary Care Provider] - Follow up as needed
--- NOTE | 2018-02-17 15:04 | RADIOLOGY REPORT (SQ) ---
EXAM DESCRIPTION: CHEST SINGLE VIEW COMPLETED DATE/TIME: 02/17/2018 2:48 pm REASON FOR STUDY: cp COMPARISON: 04/26/2016 EXAM PARAMETERS: NUMBER OF VIEWS: One view. TECHNIQUE: Single frontal radiographic view of the chest acquired. RADIATION DOSE: NA LIMITATIONS: None. FINDINGS: LUNGS AND PLEURA: No opacities, masses or pneumothorax. No pleural effusion. MEDIASTINUM AND HILAR STRUCTURES: No masses. Contour normal. HEART AND VASCULAR STRUCTURES: Heart normal in size. Normal vasculature. BONES: No acute findings. HARDWARE: Pacemaker. Sternotomy wires. OTHER: No other significant finding. IMPRESSION: NO ACUTE RADIOGRAPHIC FINDING IN THE CHEST. TECHNICAL DOCUMENTATION: JOB ID: [id number] [employer]- All Rights Reserved Reading location - IP/workstation name: [email or web address]
--- NOTE | 2018-02-17 15:07 | RADIOLOGY REPORT (SQ) ---
EXAM DESCRIPTION: CT HEAD WITHOUT COMPLETED DATE/TIME: 02/17/2018 2:56 pm REASON FOR STUDY: episode of LUE weakness COMPARISON: 01/22/2016 TECHNIQUE: Axial images acquired through the brain without intravenous contrast. Images reviewed wi th bone, brain and subdural windows. Additional sagittal and coronal reconstructions were generated. Images stored on PACS. All CT scanners at this facility use dose modulation, iterative reconstruction, and/or weight based d osing when appropriate to reduce radiation dose to as low as reasonably achievable (ALARA). [facility]: Dose Right [facility]: CareDose [facility]: Dose Right [facility]: Teradose 4D [facility]: Smart IceWEB RADIATION DOSE: CT Rad equipment meets quality standard of care and radiation dose reduction techniq ues were employed. CTDIvol: 53.2 mGy. DLP: 964 mGy-cm. mGy. LIMITATIONS: None. FINDINGS: VENTRICLES: Normal size and contour. CEREBRUM: No masses. No hemorrhage. No midline shift. No evidence for acute infarction. Normal gra y/white matter differentiation. No areas of low density in the white matter. CEREBELLUM: No masses. No hemorrhage. No alteration of density. No evidence for acute infarction. EXTRAAXIAL SPACES: No fluid collections. No masses. ORBITS AND GLOBE: No intra- or extraconal masses. Normal contour of globe without masses. CALVARIUM: No fracture. PARANASAL SINUSES: No fluid or mucosal thickening. SOFT TISSUES: No mass or hematoma. OTHER: No other significant finding. IMPRESSION: NORMAL BRAIN CT WITHOUT CONTRAST. EVIDENCE OF ACUTE STROKE: NO. COMMENT: Quality ID # [id number]: Final reports with documentation of one or more dose reduction techniques (e.g., Automated exposure control, adjustment of the mA and/or kV according to patient size, use of iterative reconstruction technique) TECHNICAL DOCUMENTATION: JOB ID: [id number] [employer]- All Rights Reserved Reading location - IP/workstation name: [email or web address]
[2018-02-17 15:35] LABS: ABSOLUTE BASOPHILS # (AUTO) 0.1 10^3/uL (0.0-0.2); ABSOLUTE EOSINOPHILS # (AUTO) 0.5 10^3/uL (0.0-0.6); ABSOLUTE LYMPHOCYTES (AUTO) 3.7 10^3/uL (0.5-4.7); ABSOLUTE MONOCYTES (AUTO) 0.6 10^3/uL (0.1-1.4); ABSOLUTE NEUT (AUTO) 4.3 10^3/uL (1.7-8.2); EOSINOPHILS % (AUTO) 5.5 % (0-6); HEMATOCRIT 35.5 % (36.0-47.0); LYMPHOCYTES % (AUTO) 39.7 % (13-45); MEAN CORPUSCULAR HEMOGLOBIN 32.5 pg (27.0-33.4); MEAN CORPUSCULAR HGB CONC 33.9 g/dL (32.0-36.0); MEAN CORPUSCULAR VOLUME 96 fl (80-97); MONOCYTES % (AUTO) 6.6 % (3-13); PLATELET COUNT 305 10^3/uL (150-450); RED CELL DISTRIBUTION WIDTH 12.7 % (11.5-14.0); SEGMENTED NEUTROPHILS % (AUTO) 47.2 % (42-78); TOTAL CELLS COUNTED % (AUTO) 100 %; WHITE BLOOD COUNT 9.2 10^3/uL (4.0-10.5)
[2018-02-17 15:39] LABS: INTERNATIONAL RATION (INR) 0.98; PROTHROMBIN TIME 13.5 SEC (11.4-15.4)
[2018-02-17 15:40] LABS: PARTIAL THROMBOPLASTIN TIME 29.2 SEC (23.5-35.8)
[2018-02-17 16:11] LABS: ALANINE AMINOTRANSFERASE 10 U/L (9-52); ALBUMIN 4.3 g/dL (3.5-5.0); ALKALINE PHOSPHATASE 79 U/L (38-126); ANION GAP 14 (5-19); ASPARTATE AMINO TRANSFERASE 15 U/L (14-36); BILIRUBIN,DIRECT 0.2 mg/dL (0.0-0.4); BILIRUBIN,TOTAL 0.7 mg/dL (0.2-1.3); BLOOD UREA NITROGEN 19 mg/dL (7-20); CARBON DIOXIDE 25 mmol/L (22-30); CHLORIDE 105 mmol/L (98-107); CREATINE KINASE 40 U/L (30-135); GLUCOSE 101 mg/dL (75-110); POTASSIUM 4.6 mmol/L (3.6-5.0); SODIUM 143.5 mmol/L (137-145); TOTAL PROTEIN 7.3 g/dL (6.3-8.2)
[2018-02-17 16:24] LABS: CREATINE KINASE MB 0.73 ng/mL (<4.55)
[2018-02-17 16:25] LABS: TROPONIN I < 0.012 ng/mL
[2018-02-17] MEDS ORDERED: ASPIRIN 81 MG TABLET, CHEWABLE PO ONE (18:05)
--- NOTE | 2018-02-17 18:08 | ER Document Report ---
ED General - General Chief Complaint: Chest Pain Stated Complaint: CHEST PAIN Time Seen by Provider: 02/17/18 13:31 Mode of Arrival: Wheelchair Information source: Patient, Relative Notes: Patient presents reporting that at 2:00 this morning she woke up with left- sided chest pain, left arm numbness and left arm paralysis. Patient states that her chest pain symptoms lasted for about 10 minutes and the paralysis lasted for about 30 minutes and then resolved. Patient denies any symptoms since then. Patient denies any shortness of breath, nausea, vomiting, or headache pain. TRAVEL OUTSIDE OF THE [place] IN LAST 30 DAYS: No - HPI Onset: This morning Onset/Duration: Sudden Quality of pain: Achy Pain Level: Denies Associated symptoms: Chest pain, Other - Left arm paralysis. denies: Nonproductive cough, Nausea, Vomiting Exacerbated by: Denies Relieved by: Denies Similar symptoms previously: Yes Recently seen / treated by doctor: No - Related Data Allergies/Adverse Reactions: metaxalone [From Skelaxin] Allergy (Verified 02/14/17 08:29) olmesartan medoxomil [From Benicar] Allergy (Verified 02/14/17 08:29) red dye [Red Dye] Allergy (Verified 02/14/17 08:29) Sulfa (Sulfonamide Antibiotics) Allergy (Verified 02/14/17 08:29) Past Medical History - General Information source: Patient, Relative - Social History Smoking Status: Former Smoker Frequency of alcohol use: None Drug Abuse: None Lives with: Family Family History: CVA, Malignancy Patient has suicidal ideation: No Patient has homicidal ideation: No - Past Medical History Cardiac Medical History: Reports: Hx Atrial Fibrillation, Hx Coronary Artery Disease, Hx Hypercholesterolemia, Hx Hypertension, Hx Heart Murmur Neurological Medical History: Reports: Hx Cerebrovascular Accident Endocrine Medical History: Reports: Hx Diabetes Mellitus Type 2 Renal/ Medical History: Denies: Hx Peritoneal Dialysis Musculoskeletal Medical History: Reports Hx Arthritis Past Surgical History: Reports: Hx Cardiac Surgery - pacemaker, valve transplant , Hx Carotid Endarterectomy, Hx Hysterectomy, Hx Orthopedic Surgery - 2 shoulder replacements, Hx Valve Replacement - pig valve for - Immunizations Hx Diphtheria, Pertussis, Tetanus Vaccination: No Hx Pneumococcal Vaccination: 04/26/09 Review of Systems - Review of Systems Constitutional: No symptoms reported. denies: Fever, Recent illness EENT: No symptoms reported Cardiovascular: Chest pain. denies: Dizziness, Lightheaded Respiratory: Cough. denies: Short of breath Gastrointestinal: No symptoms reported. denies: Abdominal pain, Vomiting Genitourinary: No symptoms reported. denies: Dysuria, Flank pain Female Genitourinary: No symptoms reported Musculoskeletal: No symptoms reported. denies: Back pain Skin: No symptoms reported Hematologic/Lymphatic: No symptoms reported Neurological/Psychological: Numbness - Left upper extremity, now resolved, Other - Dialysis of left upper extremity, now resolved Physical Exam - Vital signs Vitals: Temp Pulse Resp BP Pulse Ox 98.4 F 78 16 145/65 H 100 02/17/18 12:49 02/17/18 12:49 02/17/18 12:49 02/17/18 12:49 02/17/18 12:49 - General General appearance: Appears well, Alert In distress: None - HEENT Head: Normocephalic, Atraumatic Eyes: Normal Conjunctiva: Normal Eyelashes: Normal Pupils: PERRL Nasal: Normal Mouth/Lips: Normal Mucous membranes: Normal Pharynx: Normal Neck: Normal, Supple. No: Lymphadenopathy - Respiratory Respiratory status: No respiratory distress Chest status: Nontender Breath sounds: Normal. No: Rales, Rhonchi, Stridor, Wheezing Chest palpation: Normal - Cardiovascular Rhythm: Regular Heart sounds: S1 appreciated, S2 appreciated - Abdominal Inspection: Normal Distension: No distension Bowel sounds: Normal Tenderness: Nontender - Back Back: Normal, Nontender. No: CVA tenderness - Extremities General upper extremity: Normal inspection, Normal ROM General lower extremity: Normal inspection, Normal ROM - Neurological Neuro grossly intact: Yes Cognition: Normal Conway Coma Scale Eye Opening: Spontaneous Conway Coma Scale Verbal: Oriented Conway Coma Scale Motor: Obeys Commands Thanh Coma Scale Total: 15 Speech: Normal. No: Dysarthria Cranial nerves: Normal. No: Facial palsy, Tongue deviation Motor strength normal: LUE, RUE, LLE, RLE - Psychological Associated symptoms: Normal affect, Normal mood - Skin Skin Temperature: Warm Skin Moisture: Dry Skin Color: Normal Course - Re-evaluation Re-evalutation: 02/17/18 18:08 Patient continues to deny any chest pain symptoms or weakness or numbness to the left upper extremity. Vital signs stable. Consulted with Dr. Childers who recommends consulting with hospitalist for admission. 02/17/18 18:[address] Bhatti who agrees to accept patient has a telemetry observation admission at this time. - Vital Signs Vital signs: Temp Pulse Resp BP Pulse Ox 98.4 F 78 17 149/73 H 100 02/17/18 12:49 02/17/18 12:49 02/17/18 18:01 02/17/18 18:01 02/17/18 18:01 - Laboratory Result Diagrams: 02/17/18 15:26 02/17/18 15:26 Laboratory results interpreted by me: 02/17/18 15:26 RBC 3.70 L Hct 35.5 L 02/17/18 18:14 Labs- Entire Visit 02/17/18 02/17/18 02/17/18 15:26 15:26 15:26 WBC 9.2 RBC 3.70 L Hgb 12.0 Hct 35.5 L MCV 96 MCH 32.5 MCHC 33.9 RDW 12.7 Plt Count 305 Seg Neutrophils % 47.2 Lymphocytes % 39.7 Monocytes % 6.6 Eosinophils % 5.5 Basophils % 1.0 Absolute Neutrophils 4.3 Absolute Lymphocytes 3.7 Absolute Monocytes 0.6 Absolute Eosinophils 0.5 Absolute Basophils 0.1 PT INR APTT Sodium 143.5 Potassium 4.6 Chloride 105 Carbon Dioxide 25 Anion Gap 14 BUN 19 Creatinine 0.72 Est GFR ( Amer) > 60 Est GFR (Non-Af Amer) > 60 Glucose 101 Calcium 10.0 Total Bilirubin 0.7 Direct Bilirubin 0.2 Neonat Total Bilirubin Not Reportable Neonat Direct Bilirubin Not Reportable Neonat Indirect Bili Not Reportable AST 15 ALT 10 Alkaline Phosphatase 79 Creatine Kinase 40 CK-MB (CK-2) 0.73 Troponin I < 0.012 Total Protein 7.3 Albumin 4.3 02/17/18 15:26 WBC RBC Hgb Hct MCV MCH MCHC RDW Plt Count Seg Neutrophils % Lymphocytes % Monocytes % Eosinophils % Basophils % Absolute Neutrophils Absolute Lymphocytes Absolute Monocytes Absolute Eosinophils Absolute Basophils PT 13.5 INR 0.98 APTT 29.2 Sodium Potassium Chloride Carbon Dioxide Anion Gap BUN Creatinine Est GFR ( Amer) Est GFR (Non-Af Amer) Glucose Calcium Total Bilirubin Direct Bilirubin Neonat Total Bilirubin Neonat Direct Bilirubin Neonat Indirect Bili AST ALT Alkaline Phosphatase Creatine Kinase CK-MB (CK-2) Troponin I Total Protein Albumin - Diagnostic Test Radiology reviewed: Reports reviewed Discharge - Discharge Clinical Impression: Chest pain Qualifiers: Chest pain type: unspecified Qualified Code(s): R07.9 - Chest pain, unspecified TIA (transient ischemic attack) Qualifiers: Transient cerebral ischemia type: unspecified Qualified Code(s): G45.9 - Transient cerebral ischemic attack, unspecified Condition: Stable Disposition: ADMITTED OBSERVATION Admitting Provider: Hospitalist Unit Admitted: Telemetry
[2018-02-17] MEDS ORDERED: DEXTROSE 50%-WATER 25 GM/50 ML DISP.SYRIN IV PRN ×2 (19:27)
[2018-02-17] MEDS ORDERED: GLUCAGON,HUMAN RECOMB 1 MG INJ IM PRN (19:27)
[2018-02-17] MEDS ORDERED: INSULIN LISPRO 100 UNIT/ML 3 ML VIAL SUBCUT PRN (19:27)
[2018-02-17] MEDS ORDERED: DEXTROSE 40% GEL 15 GM TUBE PO PRN ×2 (19:27)
--- NOTE | 2018-02-17 20:11 | PDOC H&P ---
History of Present Illness Admission Date/PCP: 02/17/18 18:42 SUHAS MORENO, PAINT STOCK CLERK-C History of Present Illness: EVA HOUSE is a 72 year old female Who presents with a dull chest ache that woke her up at 2:00 this morning. In addition she had left arm numbness and left arm pain. She also reports that over the last several days she has felt episodes of heart palpitations/rapid heartbeat. She has a history of right carotid stent placement, atrial fibrillation and aortic valve replacement with a porcine valve. She also has a history of ischemic stroke x2. The chest discomfort resolved without medication within 10 minutes but the pain in her arm took several hours to dissipate. At this time she is pain-free in her chest, pain-free in her arm and has normal sensation. She is quite comfortable at this point. Past Medical History Cardiac Medical History: Reports: Atrial Fibrillation, Coronary Artery Disease, Hyperlipidema, Hypertension, Heart Murmur, Other - Carotid artery stenosis Pulmonary Medical History: Reports: None EENT Medical History: Reports: None Neurological Medical History: Reports: Ischemic CVA Endocrine Medical History: Reports: Diabetes Mellitus Type 2, Hypothyroidism, Obesity Malignancy Medical History: Reports: None GI Medical History: Reports: None Musculoskeltal Medical History: Reports: Arthritis Skin Medical History: Reports: None Psychiatric Medical History: Reports: None Traumatic Medical History: Reports: None Hematology: Reports: None Infectious Medical History: Reports: None Past Surgical History Past Surgical History: Reports: Carotid Endarterectomy, Hysterectomy, Orthopedic Surgery - 2 shoulder replacements, Pacemaker, Valve Replacement - pig valve for Social History Information Source: Patient Lives with: Family Smoking Status: Former Smoker Frequency of Alcohol Use: None Hx Recreational Drug Use: No Drugs: None Hx Prescription Drug Abuse: No - Advance Directive Resuscitation Status: Full Code Family History Family History: CAD, CVA, DM, Malignancy Parental Family History Reviewed: Yes - Father with stroke and coronary artery disease. Mother with colon cancer a Children Family History Reviewed: Yes Sibling(s) Family History Reviewed.: Yes Medication/Allergy Home Medications: Amiodarone HCl [Pacerone] 200 mg PO DAILY 02/14/17 Amlodipine Besylate 2.5 mg PO DAILY 02/14/17 Aspirin [Aspirin 81 mg Chewable Tablet] 81 mg PO DAILY 02/14/17 Atorvastatin Calcium 40 mg PO QHS 02/14/17 Carvedilol [Coreg] 6.25 mg PO Q12 02/14/17 Furosemide 20 mg PO DAILY 02/14/17 Spironolactone 50 mg PO DAILY 02/14/17 Levothyroxine Sodium [Synthroid] 50 mcg PO Q6AM 02/17/18 Metformin HCl 500 mg PO BID 02/17/18 Valsartan [Valsartan] 320 mg PO DAILY 02/17/18 Allergies/Adverse Reactions: metaxalone [From Skelaxin] Allergy (Verified 02/14/17 08:29) olmesartan medoxomil [From Benicar] Allergy (Verified 02/14/17 08:29) red dye [Red Dye] Allergy (Verified 02/14/17 08:29) Sulfa (Sulfonamide Antibiotics) Allergy (Verified 02/14/17 08:29) Review of Systems Constitutional: PRESENT: weakness Eyes: PRESENT: other - Wears glasses. ABSENT: visual disturbances Ears: ABSENT: hearing changes Nose, Mouth, and Throat: ABSENT: headache(s), sore throat, vertigo Breasts: ABSENT: other Cardiovascular: ABSENT: chest pain, edema, palpitations Respiratory: ABSENT: cough, dyspnea, hemoptysis Gastrointestinal: PRESENT: diarrhea Genitourinary: ABSENT: dysuria, hematuria Musculoskeletal: PRESENT: back pain, other - Knee pain, bilateral shoulder pain Integumentary: ABSENT: rash, wounds Neurological: ABSENT: abnormal speech, confusion, focal weakness, numbness, tingling Psychiatric: ABSENT: anxiety, depression, homidical ideation, suicidal ideation Endocrine: ABSENT: cold intolerance, flushing, heat intolerance Hematologic/Lymphatic: ABSENT: easy bleeding, easy bruising Allergic/Immunologic: ABSENT: seasonal rhinorrhea Physical Exam Vital Signs: Temp Pulse Resp BP Pulse Ox 98.4 F 78 19 137/62 H 97 02/17/18 12:49 02/17/18 12:49 02/17/18 19:01 02/17/18 19:01 02/17/18 19:01 General appearance: PRESENT: no acute distress, obese, well-developed Head exam: PRESENT: atraumatic, normocephalic Eye exam: PRESENT: conjunctiva pale, EOMI, nystagmus. ABSENT: scleral icterus Ear exam: PRESENT: normal external ear exam Mouth exam: PRESENT: dry mucosa, neck supple Teeth exam: ABSENT: dental tenderness Throat exam: ABSENT: post pharyngeal erythema, tonsillar erythema, tonsillar exudate Neck exam: PRESENT: carotid bruit. ABSENT: lymphadenopathy, tenderness, thyromegaly Respiratory exam: PRESENT: clear to auscultation caroline, symmetrical. ABSENT: rales, rhonchi, wheezes Cardiovascular exam: PRESENT: RRR, +S1, +S2, systolic murmur - 3/6 to 4/6 systolic murmur radiating to both carotid arteries Pulses: PRESENT: normal radial pulses, normal femoral pulses, +2 pedal pulses bilateral GI/Abdominal exam: PRESENT: normal bowel sounds, soft. ABSENT: distended, guarding, tenderness Rectal exam: PRESENT: deferred Extremities exam: PRESENT: pedal edema Musculoskeletal exam: PRESENT: normal inspection Neurological exam: PRESENT: alert, awake, oriented to person, oriented to place , oriented to time, oriented to situation, CN II-XII grossly intact Psychiatric exam: PRESENT: appropriate affect, normal mood Skin exam: PRESENT: dry, normal color, warm. ABSENT: cyanosis, erythema Results Impressions: Chest X-Ray 02/17/18 13:31 IMPRESSION: NO ACUTE RADIOGRAPHIC FINDING IN THE CHEST. Head CT 02/17/18 14:31 IMPRESSION: NORMAL BRAIN CT WITHOUT CONTRAST. EVIDENCE OF ACUTE STROKE: NO. Assessment & Plan - Diagnosis (1) Chest pain Qualifiers: Chest pain type: other chest pain Qualified Code(s): R07.89 - Other chest pain; R07.8 - Other chest pain Is this a current diagnosis for this admission?: Yes Plan: The patient is currently pain free and her pain resolved spontaneously. Unfortunately she has a history of carotid and cerebral atherosclerosis and diabetes. There is a high likelihood that she has some coronary atherosclerosis which may or may not be causing her symptoms. She does state that prior to her aortic valve replacement she remembers having cardiac catheterization and her daughter reports that there were no critical lesions. Her first 2 troponin levels were negative. She has a third ordered for tonight. Her EKG was unremarkable. I have ordered a stress test for tomorrow. I explained to the patient that if her stress test is negative then she will go home. I will recommend that she follow-up with her net programmer analyst as well. (2) TIA (transient ischemic attack) Qualifiers: Transient cerebral ischemia type: carotid artery syndrome (hemispheric) Qualified Code(s): G45.1 - Carotid artery syndrome (hemispheric) Is this a current diagnosis for this admission?: Yes Plan: The patient has a history of 2 ischemic strokes. Her right carotid artery was 99% occluded prior to stenting. That would likely be the higher risk side causing left arm numbness. The possibility of her left arm pain being related to angina is less likely because the chest pain resolved spontaneously and the arm discomfort continued for several hours. The patient had loss of sensation in her arm but denied focal weakness. We will continue her Plavix and aspirin and also her other antihypertensive medications to try and maintain good blood pressure control. (3) HTN (hypertension), benign Is this a current diagnosis for this admission?: Yes Plan: Her blood pressure is slightly elevated on admission. This certainly could be due to anxiety with her admission considering she did not want to go to the hospital in the first place. We will continue her amlodipine 2.5 mg daily, furosemide 20 mg daily, spironolactone 50 mg daily and valsartan 160 mg twice a day. (4) Hypothyroid Plan: Since her last admission the patient has developed hypothyroidism. This is a relatively new diagnosis. She is currently on 50 mcg of levothyroxine daily. She reports that recent review by her physician revealed normal thyroid indices and we will continue on her same dose at this time.
[2018-02-17] MEDS: SPIRONOLACTONE 25 MG TABLET PO SCH (21:32)
[2018-02-17] MEDS: VALSARTAN 160 MG TABLET PO SCH (21:49)
[2018-02-17] MEDS: CARVEDILOL 6.25 MG TABLET PO SCH (21:50)
[2018-02-17] MEDS ORDERED: ATORVASTATIN CALCIUM 40 MG TABLET PO SCH (22:00)
--- NOTE | 2018-02-17 22:01 | EKG REPORT ---
SEVERITY:- NORMAL ECG - SINUS RHYTHM : Confirmed by: Tavia Callahan 17-Feb-2018 22:00:07
[2018-02-17] MEDS: ACETAMINOPHEN 325 MG TABLET PO PRN (23:32)
[2018-02-18] MEDS ORDERED: LEVOTHYROXINE SODIUM 0.05 MG TABLET PO SCH (06:00)
[2018-02-18] MEDS: ACETAMINOPHEN 325 MG TABLET PO PRN (06:10)
[2018-02-18] MEDS ORDERED: METFORMIN HCL 500 MG TABLET PO SCH (10:00)
[2018-02-18] MEDS ORDERED: AMLODIPINE BESYLATE 2.5 MG TABLET PO SCH (10:00)
[2018-02-18] MEDS ORDERED: AMIODARONE HCL 200 MG TABLET PO SCH (10:00)
[2018-02-18] MEDS ORDERED: ENOXAPARIN SODIUM INJ 40 MG/0.4 ML DISP.SYRIN SUBCUT SCH (10:00)
[2018-02-18] MEDS ORDERED: ASPIRIN 81 MG TABLET, CHEWABLE PO SCH (10:00)
[2018-02-18] MEDS ORDERED: FUROSEMIDE 20 MG TABLET PO SCH (10:00)
[2018-02-18] MEDS ORDERED: LOPERAMIDE HCL 2 MG CAPSULE PO SCH (10:00)
[2018-02-18] MEDS: CARVEDILOL 6.25 MG TABLET PO SCH (11:03)
[2018-02-18] MEDS: SPIRONOLACTONE 25 MG TABLET PO SCH (11:03)
[2018-02-18] MEDS: VALSARTAN 160 MG TABLET PO SCH (11:04)
[2018-02-18] MEDS ORDERED: LOPERAMIDE HCL 2 MG CAPSULE PO PRN (12:57)
[2018-02-18] MEDS ORDERED: AMINOPHYLLINE INJ/PF 250 MG/10 ML SDV IV ONE (13:24)
[2018-02-18] MEDS ORDERED: REGADENOSON INJ 0.4 MG/5 ML DISP.SYRIN IV ONE (13:24)
--- NOTE | 2018-02-18 13:24 | DRAGON STRESS TEST REPORT ---
INTRAVENOUS LEXISCAN CARDIOLITE STRESS TEST USING SINGLE PHOTON EMMISION COMPUTERIZED TOMOGRAPHIC. DATE OF PROCEDURE: February 18, 2018, INDICATION : Chest pain CARDIAC RISK FACTORS: Diabetes, hypertension, dyslipidemia RESTING EKG: Sinus rhythm with ventricular paced beats STRESS EKG: No significant ST segment changes noted with LexiScan bolus REASON FOR TERMINATION: Protocol. PROCEDURE REPORT: Baseline heart rate 63 beats per minute with blood pressure of 124/65. Patient had no significant complaints. Patient was bolused with Lexiscan 0.4 mg intravenously followed by saline bolus. Heart rate at 2 minutes post bolus 80 with a blood pressure of 129/52. 3 minutes post bolus heart rate 82 with blood pressure of 136/59. No significant EKG changes were noted. Patient had no significant complaints during the procedure or postprocedure. CONCLUSIONS: Normal EKG and hemodynamic response to IV LexiScan. NUCLEAR DATA: At rest the patient was given 12.91 millicuries of technetium 99 sestamibi injected intravenously. As per protocol rest gated SPECT images were obtained. On day of stress test, the patient was given intravenous LexiScan at a dose of 0.4 mg in 5 mL intravenously, followed by flush with normal saline. Subsequently the stress dose of 36.6 millicuries of technetium 99 sestamibi was injected intravenously. As per protocol stress gated images were obtained. NUCLEAR INTERPRETATION: Both raw and processed data were used for interpretation. Visual, qualitative, computer-generated quantitative data was used. There was good myocardial uptake of technetium compound. Motion artifact and soft tissue attenuations were noted. Increased visceral uptake was noted. No definitive areas of transient perfusion defect noted, except for mild decreased uptake in the distal inferolateral wall in the stress imaging and most likely felt to be related to differences in attenuation artifact and interference from visceral uptake rather than a true perfusion defect. Overall SDS was 2 therefore unlikely to be significant. No definitive areas of fixed perfusion defect or scars noted. EKG gated imaging showed LV EF at 63 %, rest and stress gated EF similar visually. T. I D. ratio was 0.98. Lung heart ratio noted to be within normal limits 0.31. No significant extracardiac and abnormal radiotracer activities were noted. RV free wall uptake was noted to be mildly increased. IMPRESSION: Also refer to comments under nuclear interpretation. Also test results needs to be interpreted in the context of pretest probability. 1. No definitive areas of transient perfusion defect noted, except for mild decreased uptake in the distal inferolateral wall in the stress imaging and most likely felt to be related to differences in attenuation artifact and interference from visceral uptake rather than a true perfusion defect. Overall SDS was 2 therefore unlikely to be significant. 2. There is no definitive scintigraphic evidence of myocardial infarction/scar. 3. EKG gated imaging shows left ventricular ejection fraction of approx. 63 %. 4. Clinical correlation requested as worse disease and or balanced ischemia could be missed. In approximately 10% of the cases Lexiscan may not cause adequate vasodilatory stress. RECOMMENDATIONS: Aggressive risk factor modification and medical management. Further evaluation may be needed if continued symptoms or other high risk indicators are noted on clinical evaluation. Close cardiology follow-up is also recommended. Clinical correlation with echocardiogram derived ejection fraction. Inability to exercise by itself can lead to increased cardiovascular event risks. Consider cardiology consultation and or follow-up if clinically indicated. I am available for cardiology evaluation and consultation if requested by the primary health organisation manager, unless patient already has a chain tender. Dr. Allen Callahan. [facility] Board certified in cardiology and sleep medicine. Board certified in nuclear cardiology, adult echocardiography. JAQUELIN
[2018-02-18 16:10] VITALS: BP 121/51
--- NOTE | 2018-02-18 22:50 | PDOC DISCHARGE SUMMARY ---
General - Admit/Disc Date/PCP Admission Date/Primary Care Provider: 02/17/18 18:42 SUHAS ZEESHAN ROMERO-Ishmael Discharge Date: 02/18/18 - Discharge Diagnosis (1) Chest pain Is this a current diagnosis for this admission?: Yes Summary: The patient has a complex cardiac history. She has had loon angioplasty with stent placement of her coronary arteries as well as right carotid artery stent. She had no further chest pain after admission. Her stress test was negative. With her history I encouraged her to follow-up with her rotary shear operator. No changes were made in her medication regimen at this time. (2) CAD (coronary artery disease) Is this a current diagnosis for this admission?: Yes Summary: Complex history as noted above. We will continue the patient's dual antiplatelet therapy as well as her current cardiac medications including amiodarone, carvedilol, valsartan, furosemide, Spironolactone and amlodipine. Follow-up with cardiology. (3) HTN (hypertension), benign Is this a current diagnosis for this admission?: Yes Summary: She exhibited reasonable blood pressure control on her current regimen. Continue same and follow-up with primary care and cardiology. (4) TIA (transient ischemic attack) Is this a current diagnosis for this admission?: Yes Summary: At the time of discharge the patient had full function of her left arm. It was pain free. With a negative stress test it is less likely that her left arm pain was related to coronary disease. She has had bilateral shoulder surgery. The discomfort in her shoulder lasted much longer than the initial left arm weakness that prompted her to go to the hospital. Arm pain is not typically a symptom of cerebrovascular disease/TIA. Regardless she will continue her antiplatelet therapy with aspirin and Plavix, antihypertensive medications and follow-up with her primary care physician since she has not seen a neurologist in some time despite the history of 2 strokes in the past. (5) DM (diabetes mellitus), type 2 with complications Is this a current diagnosis for this admission?: Yes Summary: Continue current medication regimen and compliance with diabetic/cardiac diet. Follow-up with primary care physician (or lockstitch tunnel elastic operator) after discharge. - Additional Information Resuscitation Status: Full Code Discharge Diet: Cardiac Discharge Activity: Balance Activity w/Rest Home Medications: Amiodarone HCl [Pacerone] 200 mg PO DAILY 02/14/17 Amlodipine Besylate 2.5 mg PO DAILY 02/14/17 Aspirin [Aspirin 81 mg Chewable Tablet] 81 mg PO DAILY 02/14/17 Atorvastatin Calcium 40 mg PO QHS 02/14/17 Carvedilol [Coreg] 6.25 mg PO Q12 02/14/17 Furosemide 20 mg PO DAILY 02/14/17 Spironolactone 50 mg PO DAILY 02/14/17 Levothyroxine Sodium [Synthroid] 50 mcg PO Q6AM 02/17/18 Metformin HCl 500 mg PO BID 02/17/18 Valsartan 320 mg PO DAILY 02/17/18 Amiodarone HCl [Cordarone 200 mg Tablet] 100 mg PO DAILY tablet 02/18/18 Amlodipine Besylate [Norvasc 2.5 mg Tablet] 2.5 mg PO DAILY tablet 02/18/18 Aspirin [Aspirin 81 mg Chewable Tablet] 81 mg PO DAILY tab.chew 02/18/18 Loperamide HCl [Imodium 2 mg Capsule] 2 mg PO DAILYP PRN capsule 02/18/18 History of Present Illness History of Present Illness: EVA HOUSE is a 72 year old female Who presents with a dull chest ache that woke her up at 2:00 this morning. In addition she had left arm numbness and left arm pain. She also reports that over the last several days she has felt episodes of heart palpitations/rapid heartbeat. She has a history of right carotid stent placement, atrial fibrillation and aortic valve replacement with a porcine valve. She also has a history of ischemic stroke x2. The chest discomfort resolved without medication within 10 minutes but the pain in her arm took several hours to dissipate. At this time she is pain-free in her chest, pain-free in her arm and has normal sensation. She is quite comfortable at this point. Hospital Course Hospital Course: As noted above the patient had a fairly unremarkable hospital course. Physical Exam Vital Signs: Temp Pulse Resp BP Pulse Ox 97.9 F 52 L 16 121/53 L 97 02/18/18 16:05 02/18/18 16:05 02/18/18 16:05 02/18/18 16:05 02/18/18 16:05 Intake & Output 02/17/18 02/18/18 02/19/18 06:59 06:59 06:59 Weight 83 kg General appearance: PRESENT: no acute distress, cooperative, obese, well- developed Head exam: PRESENT: atraumatic, normocephalic Eye exam: PRESENT: conjunctiva pink, EOMI. ABSENT: scleral icterus Mouth exam: PRESENT: moist, neck supple Neck exam: ABSENT: carotid bruit, JVD, lymphadenopathy, thyromegaly Respiratory exam: PRESENT: clear to auscultation caroline, symmetrical, unlabored. ABSENT: rales, rhonchi, wheezes Cardiovascular exam: PRESENT: RRR, +S1, +S2 GI/Abdominal exam: PRESENT: normal bowel sounds, soft. ABSENT: distended, tenderness Neurological exam: PRESENT: alert, awake, oriented to person, oriented to place , oriented to time, oriented to situation, other - Normal strength and sensation in her left arm and hand. Psychiatric exam: PRESENT: appropriate affect, normal mood Results Laboratory Results: 02/17/18 23:29 Troponin I < 0.012 Impressions: Chest X-Ray 02/17/18 13:31 IMPRESSION: NO ACUTE RADIOGRAPHIC FINDING IN THE CHEST. Head CT 02/17/18 14:31 IMPRESSION: NORMAL BRAIN CT WITHOUT CONTRAST. EVIDENCE OF ACUTE STROKE: NO. Qualifiers - * PATIENT BEING DISCHARGED WITH ANY OF THE FOLLOWING DIAGNOSIS: No
== END 2018-02-18 16:25 | disposition home or self-care (01) ==
LOC: ER 12:41 → EH 18:42 → 4S 20:58
PROVIDERS: ADMIT Internal Medicine; ATTEND Internal Medicine
DX: R07.89 Other chest pain (principal); Z95.5 Presence of coronary angioplasty implant and graft; I25.10 Atherosclerotic heart disease of native coronary artery without angina pectoris; I10 Essential (primary) hypertension; G45.1 Carotid artery syndrome (hemispheric); M79.602 Pain in left arm; E11.8 Type 2 diabetes mellitus with unspecified complications; R20.0 Anesthesia of skin; E03.9 Hypothyroidism, unspecified; E78.5 Hyperlipidemia, unspecified; I48.91 Unspecified atrial fibrillation; R19.7 Diarrhea, unspecified; M25.569 Pain in unspecified knee; M54.9 Dorsalgia, unspecified; M25.512 Pain in left shoulder; M25.511 Pain in right shoulder; M19.90 Unspecified osteoarthritis, unspecified site; Z98.890 Other specified postprocedural states; Z79.02 Long term (current) use of antithrombotics/antiplatelets; Z79.82 Long term (current) use of aspirin; Z79.84 Long term (current) use of oral hypoglycemic drugs; Z86.73 Personal history of transient ischemic attack (TIA), and cerebral infarction without residual deficits; Z95.2 Presence of prosthetic heart valve; Z95.0 Presence of cardiac pacemaker; Z96.619 Presence of unspecified artificial shoulder joint; Z82.49 Family history of ischemic heart disease and other diseases of the circulatory system; Z82.3 Family history of stroke; Z87.891 Personal history of nicotine dependence
CPT/HCPCS: 93005; 99285; 36415; 82553; 82962 ×2; 82550; 85025; 85610; 85730; 80053; 84484; 93017; 71045; 78452; 70450; 93010; G0378 ×3; A9500; A9270 ×14; J2785; J1650; J3490 ×2; J0280; Q9969

== ENCOUNTER → 2018-03-22 | Outpatient (CLI) | payer MEDICARE, OTHER ==
--- NOTE | 2018-03-22 16:11 | WOMENS IMAGING REPORT ---
EXAM DESCRIPTION: BILAT SCREENING MAMMO W/CAD COMPLETED DATE/TIME: 03/22/2018 3:37 pm REASON FOR STUDY: BILATERAL SCREENING MAMMO /Z12.31 Z12.31 ENCNTR SCREEN MAMMOGRAM FOR MALIGNANT NE OPLASM OF SHAD COMPARISON: Multiple since 2012 TECHNIQUE: Standard craniocaudal and mediolateral oblique views of each breast recorded using [employer] acquisition. LIMITATIONS: None. FINDINGS: No masses, calcifications or architectural distortion. No areas of suspicion. Read with the assistance of CAD. .[facility] - R2 Cenova Version 1.3 .[facility] Imaging - R2 Cenova Version 1.3 .[facility] - R2 Cenova Version 2.4 .[facility] [place] - R2 Cenova Version 2.4 .[facility] - R2 Validation Consultant Version 9.2 IMPRESSION: NORMAL MAMMOGRAM. BIRADS 1. BREAST DENSITY: b. There are scattered areas of fibroglandular density. BIRAD: 1 NEGATIVE RECOMMENDATION: ROUTINE SCREENING Please continue yearly bilateral screening mammography/tomosynthesis in February 2019. COMMENT: The patient has been notified of the results by letter per [place] requirements. Additional no tification policies are in place for contacting patient with suspicious or incomplete findings. Quality ID #[id number]: The [employer] recommends an annual screening mammogram for women aged 40 years or over. This facility utilizes a reminder system to ensure that all patients receive reminder letters, and/or direct phone calls for appointments. This includes reminders for routine scr eening mammograms, diagnostic mammograms, or other Breast Imaging Interventions when appropriate. Th is patient will be placed in the appropriate reminder system. The [employer] (ACR) has developed recommendations for screening MRI of the breast s in certain patient populations, to be used in conjunction with mammography. Breast MRI surveillanc e may be appropriate for women with more than 20% lifetime risk of developing breast cancer as deter mined by genetic testing, significant family history of the disease, or history of mantle radiation f or Hodgkins Disease. ACR Practice Guidelines 2008. TECHNICAL DOCUMENTATION: FINDING NUMBER: (1) ASSESSMENT: (1) JOB ID: [id number] [employer]- All Rights Reserved Reading location - IP/workstation name: [email or web address]
== END ==
LOC: WI 14:51
PROVIDERS: ATTEND Physician Assistant
DX: Z12.31 Encounter for screening mammogram for malignant neoplasm of breast (principal)
CPT/HCPCS: 77067

== ENCOUNTER 2018-12-01 15:25 | Emergency (ER) | payer MEDICARE ==
[2018-12-01] MEDS ORDERED: ASPIRIN 81 MG TABLET, CHEWABLE PO ONE (15:44)
--- NOTE | 2018-12-01 15:47 | ER Document Report ---
ED Medical Screen (RME) - General Chief Complaint: Chest Pain Stated Complaint: CHEST PAIN Time Seen by Provider: 12/01/18 15:35 Primary Care Provider: SUE MAR PA-C [Primary Care Provider] - Follow up as needed Mode of Arrival: Ambulatory Information source: Patient Notes: 73-year-old female presented to ED for complaint of shortness of breath substernal chest pain that comes and goes for the last week very short of breath very weak. She states all the symptoms are much worse since yesterday. She does have a history of high blood pressure cholesterol atrial fib and arthritis. She had a open heart surgery for aortic valve replacement pacemaker and a total right hip replacement. She is a former smoker lives with family. Patient is alert and oriented does have 3+ pedal edema bilaterally and is very short of breath. I have greeted and performed a rapid initial assessment of this patient. A comprehensive ED assessment and evaluation of the patient, analysis of test results and completion of medical decision making process will be conducted by an additional ED providers. Dictation of this chart was performed using voice recognition software; therefore, there may be some unintended grammatical errors. TRAVEL OUTSIDE OF THE [place] IN LAST 30 DAYS: No - Related Data Allergies/Adverse Reactions: buprenorphine [From Butrans] Allergy (Verified 12/01/18 15:27) hydrochlorothiazide Allergy (Verified 12/01/18 15:27) metaxalone [From Skelaxin] Allergy (Verified 02/14/17 08:29) olmesartan medoxomil [From Benicar] Allergy (Verified 02/14/17 08:29) red dye [Red Dye] Allergy (Verified 02/14/17 08:29) solifenacin [From Vesicare] Allergy (Verified 12/01/18 15:27) Sulfa (Sulfonamide Antibiotics) Allergy (Verified 02/14/17 08:29) Past Medical History - Past Medical History Cardiac Medical History: Reports: Hx Atrial Fibrillation, Hx Coronary Artery Disease, Hx Hypercholesterolemia, Hx Hypertension, Hx Heart Murmur Denies: Hx Congestive Heart Failure, Hx Heart Attack Pulmonary Medical History: Reports: Hx Bronchitis Denies: Hx Asthma, Hx COPD, Hx Pneumonia, Hx Tuberculosis Neurological Medical History: Reports: Hx Cerebrovascular Accident. Denies: Hx Seizures Endocrine Medical History: Reports: Hx Diabetes Mellitus Type 2, Hx Hypothyroidism Renal/ Medical History: Denies: Hx End Stage Renal Disease, Hx Kidney Stones, Hx Peritoneal Dialysis GI Medical History: Denies: Hx Cirrhosis, Hx Gastroesophageal Reflux Disease, Hx Ulcer Musculoskeltal Medical History: Reports Hx Arthritis, Denies Hx Multiple Sclerosis Psychiatric Medical History: Denies: Hx Bipolar Disorder, Hx Depression, Hx Schizophrenia Past Surgical History: Reports: Hx Cardiac Surgery - pacemaker, valve transplant, Hx Carotid Endarterectomy, Hx Hysterectomy, Hx Orthopedic Surgery - 2 shoulder replacements, Hx Pacemaker, Hx Valve Replacement - pig valve for - Immunizations Hx Diphtheria, Pertussis, Tetanus Vaccination: No History of Influenza Vaccine for 01/2017 - 06/2017 Season: Yes Doctor's Discharge - Discharge Referrals: SUE MAR PA-C [Primary Care Provider] - Follow up as needed
--- NOTE | 2018-12-01 16:35 | RADIOLOGY REPORT (SQ) ---
EXAM DESCRIPTION: CHEST 2 VIEWS COMPLETED DATE/TIME: 12/01/2018 4:24 pm REASON FOR STUDY: chest pain short of breath pedal edema COMPARISON: 02/17/2018 TECHNIQUE: Frontal and lateral radiographic views of the chest acquired. NUMBER OF VIEWS: Two view. LIMITATIONS: None. FINDINGS: LUNGS AND PLEURA: No pneumothorax. No consolidation or pleural effusion. MEDIASTINUM AND HILAR STRUCTURES: Stable. HEART AND VASCULAR STRUCTURES: Stable. BONES: No acute findings. HARDWARE: CABG. Cardiac pacer. OTHER: No other significant finding. IMPRESSION: NO ACUTE FINDINGS. TECHNICAL DOCUMENTATION: JOB ID: [id number] [place]-72 2010 [employer]- All Rights Reserved Reading location - IP/workstation name: [email or web address]
[2018-12-01 16:39] LABS: ABSOLUTE BASOPHILS # (AUTO) 0.1 10^3/uL (0.0-0.2); ABSOLUTE EOSINOPHILS # (AUTO) 0.7 10^3/uL (0.0-0.6); ABSOLUTE LYMPHOCYTES (AUTO) 2.8 10^3/uL (0.5-4.7); ABSOLUTE MONOCYTES (AUTO) 0.6 10^3/uL (0.1-1.4); ABSOLUTE NEUT (AUTO) 5.1 10^3/uL (1.7-8.2); BASOPHILS % (AUTO) 0.7 % (0-2); EOSINOPHILS % (AUTO) 7.3 % (0-6); HEMATOCRIT 36.3 % (36.0-47.0); HEMOGLOBIN 12.2 g/dL (12.0-15.5); LYMPHOCYTES % (AUTO) 30.5 % (13-45); MEAN CORPUSCULAR HEMOGLOBIN 32.2 pg (27.0-33.4); MEAN CORPUSCULAR HGB CONC 33.6 g/dL (32.0-36.0); MEAN CORPUSCULAR VOLUME 96 fl (80-97); MONOCYTES % (AUTO) 6.1 % (3-13); PLATELET COUNT 258 10^3/uL (150-450); RED BLOOD COUNT 3.79 10^6/uL (3.72-5.28); RED CELL DISTRIBUTION WIDTH 14.2 % (11.5-14.0); SEGMENTED NEUTROPHILS % (AUTO) 55.4 % (42-78); TOTAL CELLS COUNTED % (AUTO) 100 %; WHITE BLOOD COUNT 9.3 10^3/uL (4.0-10.5)
[2018-12-01 16:43] LABS: APPEARANCE,URINE SLIGHTLY-CLOUDY; BILIRUBIN,URINE NEGATIVE (NEGATIVE); COLOR,URINE YELLOW; GLUCOSE, URINE NEGATIVE (NEGATIVE); KETONES,URINE NEGATIVE (NEGATIVE); LEUKOCYTE ESTERASE,URINE TRACE (NEGATIVE); NITRITE,URINE NEGATIVE (NEGATIVE); PROTEIN,URINE NEGATIVE (NEGATIVE); URINE SPECIFIC GRAVITY 1.018; UROBILINOGEN,URINE NEGATIVE mg/dL (<2.0)
[2018-12-01 16:46] LABS: INTERNATIONAL RATION (INR) 1.18
[2018-12-01 16:56] LABS: ADD MANUAL MICROSCOPIC YES; BACTERIA,URINE 3+ /HPF
[2018-12-01 17:01] LABS: ALBUMIN 4.4 g/dL (3.5-5.0); ALKALINE PHOSPHATASE 90 U/L (38-126); ANION GAP 8 (5-19); ASPARTATE AMINO TRANSFERASE 17 U/L (14-36); BILIRUBIN,DIRECT 0.2 mg/dL (0.0-0.4); BILIRUBIN,TOTAL 0.4 mg/dL (0.2-1.3); BLOOD UREA NITROGEN 20 mg/dL (7-20); CALCIUM 9.4 mg/dL (8.4-10.2); CARBON DIOXIDE 32 mmol/L (22-30); CHLORIDE 101 mmol/L (98-107); CREATINE KINASE 56 U/L (30-135); GLUCOSE 162 mg/dL (75-110); POTASSIUM 5.3 mmol/L (3.6-5.0); TOTAL PROTEIN 7.2 g/dL (6.3-8.2)
[2018-12-01 17:09] LABS: CREATINE KINASE MB 0.77 ng/mL (<4.55)
--- NOTE | 2018-12-01 17:56 | EKG REPORT ---
SEVERITY:- ABNORMAL ECG - SINUS RHYTHM FIRST DEGREE AVB : Confirmed by: Roman Fraser MD 01-Dec-2018 17:56:23
--- NOTE | 2018-12-01 17:57 | EKG REPORT ---
SEVERITY:- ABNORMAL ECG - SINUS RHYTHM FIRST DEGREE AV BLOCK : Confirmed by: Roman Fraser MD 01-Dec-2018 17:56:45
[2018-12-01] MEDS ORDERED: FUROSEMIDE INJ/PF 40 MG/4 ML SDV IV ONE (18:14)
--- NOTE | 2018-12-01 18:26 | ER Document Report ---
ED Cardiac - General Chief Complaint: Chest Pain Stated Complaint: CHEST PAIN Time Seen by Provider: 12/01/18 15:35 Primary Care Provider: SUE MAR PA-C [Primary Care Provider] - Follow up as needed Mode of Arrival: Ambulatory TRAVEL OUTSIDE OF THE [place] IN LAST 30 DAYS: No - HPI Notes: Patient is a 73-year-old female that presents to the emergency department for chief complaint of palpitations. States intermittently yesterday and today she has had heart palpitations. She describes it as a heavy thought sensation in her chest. It lasts for a few seconds and then goes away. She denies sustained chest pain. She does states she has had increased shortness of breath over the last 3 weeks. Patient states she had her pacemaker interrogated today by her mason tender restoration labor at [facility] and they reported no dysrhythmia. Patient currently asymptomatic. She denies history of OR. She is currently taking Eliquis for history of DVT. She denies any recent hospitalizations, surgery or travel. Patient does take Lasix 20 mg daily but reports her lower extremities have increasingly become swollen over the last few weeks as well. Past Medical History: DVT, hypertension Past Surgical History: Right hip replacement Social History: Lives at home. Denies tobacco and alcohol use Family History: Reviewed and noncontributory for presenting illness Allergies: Reviewed, see documented allergy list. REVIEW OF SYSTEMS: CONSTITUTIONAL : No fever No chills No diaphoresis No recent illness EENT: No vision changes No congestion No sore throat CARDIOVASCULAR: No chest pain palpitations RESPIRATORY: shortness of breath No cough No difficulty breathing GASTROINTESTINAL: No abdominal pain No nausea No vomiting No diarrhea GENITOURINARY: No dysuria No hematuria No difficulty urinating MUSCULOSKELETAL: No back pain No leg pain No arm pain SKIN: No rashes No lesions LYMPHATIC: No swollen, enlarged glands. NEUROLOGICAL: No lightheadedness No headache No weakness No paresthesias PSYCHIATRIC: No anxiety No depression PHYSICAL EXAMINATION: Vital signs reviewed, nursing noted reviewed. GENERAL: Well-appearing, well-nourished and in no acute distress. HEAD: Atraumatic, normocephalic. EYES: Eyes appear normal, extraocular movements intact, sclera anicteric, conjunctiva are normal. ENT: nares patent, oropharynx clear without exudates. Moist mucous membranes. NECK: Normal range of motion, supple without lymphadenopathy LUNGS: Breath sounds clear to auscultation bilaterally and equal. No wheezes rales or rhonchi. HEART: Regular rate and rhythm without murmurs ABDOMEN: Soft, nontender, normoactive bowel sounds. No rebound, guarding, or rigidity. No masses appreciated. EXTREMITIES: Nontender, good range of motion, +2 pitting edema bilateral lower extremities and symmetric NEUROLOGICAL: No focal neurological deficits. Moves all extremities spontaneously Motor and sensory grossly intact on exam. PSYCH: Normal mood, normal affect. SKIN: Warm, Dry, normal turgor, no rashes or lesions noted on exposed skin - Related Data Allergies/Adverse Reactions: buprenorphine [From Butrans] Allergy (Verified 12/01/18 15:27) hydrochlorothiazide Allergy (Verified 12/01/18 15:27) metaxalone [From Skelaxin] Allergy (Verified 02/14/17 08:29) olmesartan medoxomil [From Benicar] Allergy (Verified 02/14/17 08:29) red dye [Red Dye] Allergy (Verified 02/14/17 08:29) solifenacin [From Vesicare] Allergy (Verified 12/01/18 15:27) Sulfa (Sulfonamide Antibiotics) Allergy (Verified 02/14/17 08:29) Past Medical History - General Information source: Patient - Social History Smoking Status: Former Smoker Family History: CAD, CVA, DM, Malignancy Patient has suicidal ideation: No Patient has homicidal ideation: No - Past Medical History Cardiac Medical History: Reports: Hx Atrial Fibrillation, Hx Coronary Artery Disease, Hx Hypercholesterolemia, Hx Hypertension, Hx Heart Murmur Denies: Hx Congestive Heart Failure, Hx Heart Attack Pulmonary Medical History: Reports: Hx Bronchitis Denies: Hx Asthma, Hx COPD, Hx Pneumonia, Hx Tuberculosis Neurological Medical History: Reports: Hx Cerebrovascular Accident. Denies: Hx Seizures Endocrine Medical History: Reports: Hx Diabetes Mellitus Type 2, Hx Hypothyroidism Renal/ Medical History: Denies: Hx End Stage Renal Disease, Hx Kidney Stones, Hx Peritoneal Dialysis GI Medical History: Denies: Hx Cirrhosis, Hx Gastroesophageal Reflux Disease, Hx Ulcer Musculoskeletal Medical History: Reports Hx Arthritis, Denies Hx Multiple Sclerosis Psychiatric Medical History: Denies: Hx Bipolar Disorder, Hx Depression, Hx Schizophrenia Past Surgical History: Reports: Hx Cardiac Surgery - pacemaker, valve transplant, Hx Carotid Endarterectomy, Hx Hysterectomy, Hx Orthopedic Surgery - 2 shoulder replacements, Hx Pacemaker, Hx Valve Replacement - pig valve for - Immunizations Hx Diphtheria, Pertussis, Tetanus Vaccination: No Hx Pneumococcal Vaccination: 04/26/09 Physical Exam - Vital signs Vitals: Temp Pulse Resp BP Pulse Ox 97.9 F 84 20 130/65 H 97 12/01/18 15:40 12/01/18 15:40 12/01/18 15:40 12/01/18 15:40 12/01/18 15:40 Course - Re-evaluation Re-evalutation: 12/01/18 18:24 Vitals reviewed. Nursing notes reviewed. Patient is well-appearing and in no acute distress. Her EKG shows sinus rhythm without ectopy or dysrhythmia. She did have a pacemaker interrogation today by her mason tender restoration labor which was normal. Patient's initial troponin is negative. Her lab work shows a slight elevation of potassium at 5.3 however she has no EKG changes of hyperkalemia necessitating emergent management. Patient has not had sustained chest pain and is describing more of a palpitation that has been intermittent. She does have a history of DVT and reports compliance with her Eliquis however she has had shortness of breath increasing over the last few weeks and CT scan will be obtained to evaluate for underlying pulmonary embolism. Patient also given a dose of IV Lasix for her peripheral edema. 12/01/18 19:25 Patient reevaluated. She has had 5 episodes of urination since receiving the Lasix and is diuresing nicely. Patient has remained asymptomatic in the emergency room and her work-up is grossly unremarkable. Her complaint is more palpitations than chest pain and I am not clinically suspicious for ACS. Patient does have a mason tender restoration labor which she has been in contact with today and will follow with tomorrow for close outpatient reevaluation. She was told to return if her symptoms become constant or for new concerning symptoms. Patient and family are in agreement with this plan of care and she is stable at discharge. Laboratory 12/01/18 12/01/18 12/01/18 16:19 16:19 16:19 WBC 9.3 RBC 3.79 Hgb 12.2 Hct 36.3 MCV 96 MCH 32.2 MCHC 33.6 RDW 14.2 H Plt Count 258 Seg Neutrophils % 55.4 Lymphocytes % 30.5 Monocytes % 6.1 Eosinophils % 7.3 H Basophils % 0.7 Absolute Neutrophils 5.1 Absolute Lymphocytes 2.8 Absolute Monocytes 0.6 Absolute Eosinophils 0.7 H Absolute Basophils 0.1 PT 15.0 INR 1.18 APTT 33.0 Sodium 140.5 Potassium 5.3 H Chloride 101 Carbon Dioxide 32 H Anion Gap 8 BUN 20 Creatinine 0.87 Est GFR ( Amer) > 60 Est GFR (Non-Af Amer) > 60 Glucose 162 H Calcium 9.4 Total Bilirubin 0.4 Direct Bilirubin 0.2 Neonat Total Bilirubin Not Reportable Neonat Direct Bilirubin Not Reportable Neonat Indirect Bili Not Reportable AST 17 ALT 11 Alkaline Phosphatase 90 Creatine Kinase 56 CK-MB (CK-2) Troponin I NT-Pro-B Natriuret Pep Total Protein 7.2 Albumin 4.4 Lipase 106.6 Urine Color Urine Appearance Urine pH Ur Specific [place] Urine Protein Urine Glucose (UA) Urine Ketones Urine Blood Urine Nitrite Urine Bilirubin Urine Urobilinogen Ur Leukocyte Esterase Urine WBC Ur Squamous Epith Cells Urine Bacteria Urine Mucus Urine Ascorbic Acid 12/01/18 12/01/18 12/01/18 16:19 16:19 16:19 WBC RBC Hgb Hct MCV MCH MCHC RDW Plt Count Seg Neutrophils % Lymphocytes % Monocytes % Eosinophils % Basophils % Absolute Neutrophils Absolute Lymphocytes Absolute Monocytes Absolute Eosinophils Absolute Basophils PT INR APTT Sodium Potassium Chloride Carbon Dioxide Anion Gap BUN Creatinine Est GFR ( Amer) Est GFR (Non-Af Amer) Glucose Calcium Total Bilirubin Direct Bilirubin Neonat Total Bilirubin Neonat Direct Bilirubin Neonat Indirect Bili AST ALT Alkaline Phosphatase Creatine Kinase CK-MB (CK-2) 0.77 Troponin I < 0.012 NT-Pro-B Natriuret Pep 795 Total Protein Albumin Lipase Urine Color YELLOW Urine Appearance SLIGHTLY-CLOUDY Urine pH 6.0 Ur Specific [place] 1.018 Urine Protein NEGATIVE Urine Glucose (UA) NEGATIVE Urine Ketones NEGATIVE Urine Blood NEGATIVE Urine Nitrite NEGATIVE Urine Bilirubin NEGATIVE Urine Urobilinogen NEGATIVE Ur Leukocyte Esterase TRACE H Urine WBC 1-5 Ur Squamous Epith Cells MODERATE Urine Bacteria 3+ Urine Mucus TRACE Urine Ascorbic Acid 20 H Chest X-Ray 12/01/18 15:44 IMPRESSION: NO ACUTE FINDINGS. Chest/Abdomen CTA 12/01/18 18:14 IMPRESSION: Mild bronchial wall thickening is present, basilar predominance. No consolidation or pleural effusions.. No emboli visualized in the main pulmonary arteries or the segmental branches. - Vital Signs Vital signs: Temp Pulse Resp BP Pulse Ox 97.9 F 76 18 134/64 H 98 12/01/18 15:40 12/01/18 17:48 12/01/18 17:50 12/01/18 17:48 12/01/18 17:50 - Laboratory Result Diagrams: 12/01/18 16:19 12/01/18 16:19 Laboratory results interpreted by me: 12/01/18 12/01/18 12/01/18 16:19 16:19 16:19 RDW 14.2 H Eosinophils % 7.3 H Absolute Eosinophils 0.7 H Potassium 5.3 H Carbon Dioxide 32 H Glucose 162 H Ur Leukocyte Esterase TRACE H Urine Ascorbic Acid 20 H - EKG Interpretation by Me Additional EKG results interpreted by me: 12/01/18 18:26 Interpreted by myself 1555: Normal sinus rhythm, rate 80, normal axis, no ectopy, no STEMI Discharge - Discharge Clinical Impression: Heart palpitations, Peripheral edema Condition: Stable Disposition: HOME, SELF-CARE Instructions: Palpitations (Irregular or Rapid Heartrate) ([facility]) Additional Instructions: Please return to the emergency department if you have any worsening, or concern of your symptoms. Please return to the emergency department if you develop chest pain, difficulty breathing, severe abdominal pain, or ongoing vomiting. Please follow-up with your primary care physician in 2-3 days and any other recommended physicians. If prescribed, take all medications as directed. If you have any questions or concerns do not hesitate to return the emergency department for evaluation. Contact your mason tender restoration labor tomorrow morning for outpatient reevaluation tomorrow Referrals: SUE MAR PA-C [Primary Care Provider] - Follow up in 3-5 days
--- NOTE | 2018-12-01 18:58 | RADIOLOGY REPORT (SQ) ---
EXAM DESCRIPTION: CTA CHEST COMPLETED DATE/TIME: 12/01/2018 6:40 pm REASON FOR STUDY: PE STUDY COMPARISON: 10/08/2007 TECHNIQUE: CT scan of the chest performed using helical scanning technique with dynamic intravenous contrast injection. Images reviewed with lung, soft tissue and bone windows. Reconstructed coronal and sagittal MPR images reviewed. Additional 3 dimensional post-processing performed to develop Maximal Intensity Projection images (SC P). All images stored on PACS. All CT scanners at this facility use dose modulation, iterative reconstruction, and/or weight based d osing when appropriate to reduce radiation dose to as low as reasonably achievable (ALARA). [facility]: Dose Right [facility]: CareDose [facility]: Dose Right [facility]: Teradose 4D [facility]: Whisk CONTRAST TYPE AND DOSE: 100 mL Omnipaque 350- low osmolar. Contrast bolus adequate for pulmonary arteries and aorta. RENAL FUNCTION: GFR > 60. RADIATION DOSE: CT Rad equipment meets quality standard of care and radiation dose reduction techniq ues were employed. CTDIvol: 19.8 - 19.9 mGy. DLP: 698 mGy-cm. . LIMITATIONS: None. FINDINGS: LUNGS AND PLEURA: No pneumothorax. Mild bronchial wall thickening is present, basilar pre dominance. No consolidation or pleural effusions. Mild chronic interstitial changes- calcified gran ulomas. AORTA AND GREAT VESSELS: No aneurysm. Contrast bolus not optimized for the aorta. HEART: No pericardial effusion. Prior CABG. PULMONARY ARTERIES: No emboli visualized in the main pulmonary arteries or the segmental branches. HILAR AND MEDIASTINAL STRUCTURES: No identified masses or abnormal nodes. HARDWARE: CABG. Cardiac pacer. UPPER ABDOMEN: No significant findings. Limited exam. THYROID AND OTHER SOFT TISSUES: No masses. No adenopathy. BONES: No acute finding. 3D MIPS: Confirm above findings. OTHER: No other significant finding. IMPRESSION: Mild bronchial wall thickening is present, basilar predominance. No consolidation or pl eural effusions.. No emboli visualized in the main pulmonary arteries or the segmental branches. COMMENT: Quality ID # [id number]: Final reports with documentation of one or more dose reduction techniques (e.g., Automated exposure control, adjustment of the mA and/or kV according to patient size, use of iterative reconstruction technique) TECHNICAL DOCUMENTATION: JOB ID: [id number] [place]-72 2010 [employer]- All Rights Reserved Reading location - IP/workstation name: [email or web address]
[2018-12-01 20:06] VITALS: BP 126/65
== END 2018-12-01 20:07 | disposition home or self-care (01) ==
LOC: ER 15:25
DX: R00.2 Palpitations (principal); R60.0 Localized edema; R06.02 Shortness of breath; R07.9 Chest pain, unspecified; Z79.01 Long term (current) use of anticoagulants; Z86.718 Personal history of other venous thrombosis and embolism; Z87.891 Personal history of nicotine dependence; I25.10 Atherosclerotic heart disease of native coronary artery without angina pectoris; I12.0 Hypertensive chronic kidney disease with stage 5 chronic kidney disease or end stage renal disease; E11.22 Type 2 diabetes mellitus with diabetic chronic kidney disease; N18.6 End stage renal disease
CPT/HCPCS: 93005; 99285; 96374; 36415; 82553; 82550; 83690; 85025; 85610; 85730; 80053; 81001; 84484; 83880; 71046; 71275; 93010; A9270; J1940

== ENCOUNTER 2019-04-27 12:39 | Emergency (ER) | payer MEDICARE, OTHER ==
[2019-04-27] MEDS ORDERED: IPRATROPIUM/ALBUTEROL 0.5-2.5 MG/3 ML AMPUL NEB ONE (13:06)
--- NOTE | 2019-04-27 13:09 | ER Document Report ---
ED Medical Screen (RME) - General Chief Complaint: Chest Pain Stated Complaint: CHEST PAIN,RIGHT ARM PAIN, Time Seen by Provider: 04/27/19 13:01 Primary Care Provider: SUE MAR PA-C [Primary Care Provider] - Follow up as needed Notes: 73-year-old female with hypertension, heart failure with unknown ejection fraction, valve replacement status post AICD presents to the emergency department with chest pain x1 hour. Patient states that the pain is over her right breast and epigastrium and radiates into her right arm. The pain has subsided now. No associated nausea or diaphoresis, no dyspnea on exertion or shortness of breath. Patient also has a cough for the past 2 weeks that is productive. Exam: Well-appearing no acute distress, grade 3/6 systolic ejection murmur, bibasilar end expiratory wheezing\ I have greeted and performed a rapid initial assessment of this patient. A comprehensive ED assessment and evaluation of the patient, analysis of test results and completion of medical decision making process will be conducted by an additional ED providers. TRAVEL OUTSIDE OF THE [place] IN LAST 30 DAYS: No - Related Data Allergies/Adverse Reactions: buprenorphine [From Butrans] Allergy (Verified 12/01/18 15:27) hydrochlorothiazide Allergy (Verified 12/01/18 15:27) metaxalone [From Skelaxin] Allergy (Verified 02/14/17 08:29) olmesartan medoxomil [From Benicar] Allergy (Verified 02/14/17 08:29) red dye [Red Dye] Allergy (Verified 02/14/17 08:29) solifenacin [From Vesicare] Allergy (Verified 12/01/18 15:27) Sulfa (Sulfonamide Antibiotics) Allergy (Verified 02/14/17 08:29) Past Medical History - Social History Frequency of alcohol use: None Drug Abuse: None - Past Medical History Cardiac Medical History: Reports: Hx Atrial Fibrillation, Hx Coronary Artery Disease, Hx Hypercholesterolemia, Hx Hypertension, Hx Heart Murmur Denies: Hx Congestive Heart Failure, Hx Heart Attack Pulmonary Medical History: Reports: Hx Bronchitis Denies: Hx Asthma, Hx COPD, Hx Pneumonia, Hx Tuberculosis Neurological Medical History: Reports: Hx Cerebrovascular Accident. Denies: Hx Seizures, Hx Parkinson's Disease Endocrine Medical History: Reports: Hx Diabetes Mellitus Type 2, Hx Hypothyroidism Renal/ Medical History: Denies: Hx End Stage Renal Disease, Hx Kidney Stones, Hx Peritoneal Dialysis GI Medical History: Denies: Hx Cirrhosis, Hx Gastroesophageal Reflux Disease, Hx Ulcer Musculoskeltal Medical History: Reports Hx Arthritis, Denies Hx Multiple Sclerosis Psychiatric Medical History: Denies: Hx Bipolar Disorder, Hx Depression, Hx Schizophrenia Past Surgical History: Reports: Hx Cardiac Surgery - pacemaker, valve transplant, Hx Carotid Endarterectomy, Hx Hysterectomy, Hx Orthopedic Surgery - 2 shoulder replacements, Hx Pacemaker, Hx Valve Replacement - pig valve for - Immunizations Hx Diphtheria, Pertussis, Tetanus Vaccination: No Physical Exam - Vital signs Vitals: Temp Pulse Resp BP Pulse Ox 98.0 F 89 16 149/70 H 96 04/27/19 12:56 04/27/19 12:56 04/27/19 12:56 04/27/19 12:56 04/27/19 12:56 Course - Vital Signs Vital signs: Temp Pulse Resp BP Pulse Ox 98.0 F 89 16 149/70 H 96 04/27/19 12:56 04/27/19 12:56 04/27/19 12:56 04/27/19 12:56 04/27/19 12:56 Doctor's Discharge - Discharge Referrals: SUE MAR PA-C [Primary Care Provider] - Follow up as needed
--- NOTE | 2019-04-27 14:00 | RADIOLOGY REPORT (SQ) ---
EXAM DESCRIPTION: CHEST 2 VIEWS COMPLETED DATE/TIME: 04/27/2019 1:41 pm REASON FOR STUDY: Chest pain COMPARISON: 12/01/2018 EXAM PARAMETERS: NUMBER OF VIEWS: two views TECHNIQUE: Digital Frontal and Lateral radiographic views of the chest acquired. RADIATION DOSE: NA LIMITATIONS: none FINDINGS: LUNGS AND PLEURA: No opacities, masses or pneumothorax. No pleural effusion. MEDIASTINUM AND HILAR STRUCTURES: No masses or contour abnormalities. HEART AND VASCULAR STRUCTURES: Heart normal size. No evidence for failure. BONES: No acute findings. HARDWARE: CABG. Pacemaker. OTHER: No other significant finding. IMPRESSION: NO ACUTE RADIOGRAPHIC FINDING IN THE CHEST. TECHNICAL DOCUMENTATION: JOB ID: [id number] [email or web address]- All Rights Reserved Reading location - IP/workstation name: [email or web address]
[2019-04-27 14:15] LABS: ABSOLUTE BASOPHILS # (AUTO) 0.1 10^3/uL (0.0-0.2); ABSOLUTE EOSINOPHILS # (AUTO) 0.6 10^3/uL (0.0-0.6); ABSOLUTE LYMPHOCYTES (AUTO) 3.1 10^3/uL (0.5-4.7); ABSOLUTE MONOCYTES (AUTO) 0.6 10^3/uL (0.1-1.4); ABSOLUTE NEUT (AUTO) 5.9 10^3/uL (1.7-8.2); BASOPHILS % (AUTO) 1.4 % (0-2); EOSINOPHILS % (AUTO) 6.2 % (0-6); HEMATOCRIT 38.8 % (36.0-47.0); HEMOGLOBIN 13.2 g/dL (12.0-15.5); LYMPHOCYTES % (AUTO) 29.7 % (13-45); MEAN CORPUSCULAR HEMOGLOBIN 31.8 pg (27.0-33.4); MEAN CORPUSCULAR VOLUME 93 fl (80-97); PLATELET COUNT 312 10^3/uL (150-450); RED BLOOD COUNT 4.16 10^6/uL (3.72-5.28); RED CELL DISTRIBUTION WIDTH 12.8 % (11.5-14.0); SEGMENTED NEUTROPHILS % (AUTO) 56.7 % (42-78); TOTAL CELLS COUNTED % (AUTO) 100 %; WHITE BLOOD COUNT 10.5 10^3/uL (4.0-10.5)
--- NOTE | 2019-04-27 14:26 | ER Document Report ---
ED Cardiac - General Chief Complaint: Chest Pain Stated Complaint: CHEST PAIN,RIGHT ARM PAIN, Time Seen by Provider: 04/27/19 13:01 Primary Care Provider: SUE MAR PA-C [NO LOCAL MD] - Follow up as needed Mode of Arrival: Ambulatory Information source: Patient TRAVEL OUTSIDE OF THE [place] IN LAST 30 DAYS: No - HPI Patient complains to provider of: Chest pain Is the pain a: New problem Quality of pain: Achy Chest pain radiation location: Right arm Severity now: Moderate Severity at worst: Moderate Pain level currently: 0 Cardiac risk factors: Diabetes, Hypertension, Dyslipidemia, Hx [place] Positive cardiac history: Yes Relieved by: Other - Patient reports that her right arm pain and chest pain s pontaneously resolved. It appeared that the chest pain in the center of her chest started first then there was pain in in the right shoulder arm region where is it would hurt her to move her shoulder. Patient stated that this pain lasted about 5 minutes. It reminded her of a stroke that she has had in the past. Patient states that by the time she arrived to the emergency department all of her symptoms have resolved. There were no medications given to control pain or discomfort. Patient reports that she has been coughing for the last couple of days. Denies any hemoptysis. Similar symptoms previously: Yes - She is reminded of a CVA she had years ago when she had a right no arm numb Recently seen / treated by doctor: No - Related Data Allergies/Adverse Reactions: buprenorphine [From Butrans] Allergy (Verified 12/01/18 15:27) hydrochlorothiazide Allergy (Verified 12/01/18 15:27) metaxalone [From Skelaxin] Allergy (Verified 02/14/17 08:29) olmesartan medoxomil [From Benicar] Allergy (Verified 02/14/17 08:29) red dye [Red Dye] Allergy (Verified 02/14/17 08:29) solifenacin [From Vesicare] Allergy (Verified 12/01/18 15:27) Sulfa (Sulfonamide Antibiotics) Allergy (Verified 02/14/17 08:29) Past Medical History - Social History Smoking Status: Never Smoker Frequency of alcohol use: None Drug Abuse: None Lives with: Family Family History: CAD, CVA, DM, Malignancy Patient has suicidal ideation: No Patient has homicidal ideation: No - Past Medical History Cardiac Medical History: Reports: Hx Atrial Fibrillation, Hx Coronary Artery Disease, Hx Hypercholesterolemia, Hx Hypertension, Hx Heart Murmur Denies: Hx Congestive Heart Failure, Hx Heart Attack Pulmonary Medical History: Reports: Hx Bronchitis Denies: Hx Asthma, Hx COPD, Hx Pneumonia, Hx Tuberculosis Neurological Medical History: Reports: Hx Cerebrovascular Accident. Denies: Hx Seizures, Hx Parkinson's Disease Endocrine Medical History: Reports: Hx Diabetes Mellitus Type 2, Hx Hypothyroidism Renal/ Medical History: Denies: Hx End Stage Renal Disease, Hx Kidney Stones, Hx Peritoneal Dialysis GI Medical History: Denies: Hx Cirrhosis, Hx Gastroesophageal Reflux Disease, Hx Ulcer Musculoskeletal Medical History: Reports Hx Arthritis, Denies Hx Multiple Sclerosis Psychiatric Medical History: Denies: Hx Bipolar Disorder, Hx Depression, Hx Schizophrenia Past Surgical History: Reports: Hx Cardiac Surgery - pacemaker, valve transplant, Hx Carotid Endarterectomy, Hx Hysterectomy, Hx Orthopedic Surgery - 2 shoulder replacements, Hx Pacemaker, Hx Valve Replacement - pig valve for - Immunizations Hx Diphtheria, Pertussis, Tetanus Vaccination: No Hx Pneumococcal Vaccination: 04/26/09 Review of Systems - Review of Systems Cardiovascular: See HPI Respiratory: See HPI Physical Exam - Vital signs Vitals: Temp Pulse Resp BP Pulse Ox 98.0 F 89 16 149/70 H 96 04/27/19 12:56 04/27/19 12:56 04/27/19 12:56 04/27/19 12:56 04/27/19 12:56 Interpretation: Normal - General General appearance: Appears well, Alert - HEENT Head: Normocephalic, Atraumatic Eyes: Normal Pupils: PERRL - Respiratory Respiratory status: No respiratory distress Chest status: Nontender Breath sounds: Normal Chest palpation: Normal - Cardiovascular Rhythm: Regular Heart sounds: Normal auscultation Murmur: No - Abdominal Inspection: Normal Distension: No distension Bowel sounds: Normal Tenderness: Nontender Organomegaly: No organomegaly - Back Back: Normal, Nontender - Extremities General upper extremity: Normal inspection, Nontender, Normal color, Normal ROM, Normal temperature General lower extremity: Normal inspection, Nontender, Normal color, Normal ROM, Normal temperature, Normal weight bearing. No: Claudia's sign - Neurological Neuro grossly intact: Yes Cognition: Normal Orientation: AAOx4 Thorp Coma Scale Eye Opening: Spontaneous Thanh Coma Scale Verbal: Oriented Thorp Coma Scale Motor: Obeys Commands Thorp Coma Scale Total: 15 Speech: Normal Motor strength normal: LUE, RUE, LLE, RLE Sensory: Normal - Psychological Associated symptoms: Normal affect, Normal mood - Skin Skin Temperature: Warm Skin Moisture: Dry Skin Color: Normal Course - Re-evaluation Re-evalutation: 04/27/19 18:12 Nonfocal neuro exam, resting comfortably showing no signs of distress. Chest pain-free. No shortness of breath. No cough. No fever. Patient states she is ready to go home. I did discuss her results of her chest x-ray, CT scan of head, EKG, and lab results. Patient has a mild indicator for urinary tract infection. Patient does report that she noted some burning discomfort with urination. Plan is to discharge patient home on an antibiotic that should clear both acute bronchitis and urinary tract infection. Patient is to continue her same usual other medications. Patient advised to return to the emergency department if she has any further discomfort of chest or right arm. - Vital Signs Vital signs: Temp Pulse Resp BP Pulse Ox 98.0 F 89 14 118/49 L 97 04/27/19 12:56 04/27/19 12:56 04/27/19 15:01 04/27/19 15:01 04/27/19 15:01 - Laboratory Result Diagrams: 04/27/19 13:56 04/27/19 13:56 Laboratory results interpreted by me: 04/27/19 04/27/19 04/27/19 13:56 13:56 17:15 Eos % (Auto) 6.2 H Glucose 188 H Urine Nitrite POSITIVE H Ur Leukocyte Esterase SMALL H - Diagnostic Test Radiology reviewed: Image reviewed, Reports reviewed - EKG Interpretation by Me Additional EKG results interpreted by il: 04/27/19 18:15 EKG shows normal sinus rhythm atrial paced beats. No acute ST-T wave changes. Discharge - Discharge Clinical Impression: Right arm weakness Chest pain Qualifiers: Chest pain type: unspecified Qualified Code(s): R07.9 - Chest pain, unspecified Acute bronchitis Qualifiers: Bronchitis organism: unspecified organism Qualified Code(s): J20.9 - Acute bronchitis, unspecified Urinary tract infection Qualifiers: Urinary tract infection type: acute cystitis Condition: Stable Disposition: HOME, SELF-CARE Instructions: Chest Pain of Unclear Cause ([facility]), Urinary Tract Infection ([facility]) Additional Instructions: Urinary Tract Infection Your evaluation indicates that you have a urinary tract infection. This is due to germs growing in the bladder. This is a common problem. This infection usually responds quickly to antibiotics. Your antibiotic should be taken exactly as prescribed. Drink plenty of fluids -- three to four quarts a day. Occasionally, a bladder anesthetic will be prescribed to help stop the feeling of urgency until the antibiotic has a chance to clear the infection. This may cause your urine to be dark orange. Certain urine infections require a culture. If the doctor obtained a culture, the results will be back in two days. You should call to see if a change in treatment is needed. A repeat urinalysis after you finish treatment is often recommended. The physician will let you know if further testing is required. Call the doctor if you develop fever, chills, flank pain, inability to urinate, or blood in the urine. Bronchitis You have acute bronchitis. This disease is an infection or inflammation of the air passageways in your lungs. Symptoms usually include cough, low grade fever, shortness of breath, and wheezing. The cough usually persists for a couple of weeks. Most cases of bronchitis get better without antibiotics. We prescribe antibiotics when we believe bacteria are damaging your airways, or if there's high risk the bronchitis will worsen into pneumonia. Increase your fluid intake. A cool mist humidifier may make your lungs more comfortable. An expectorant (cough medicine that loosens phlegm) can help. If you smoke, STOP!!! Recovery from bronchitis can be somewhat slow, but you should see improvement within a day or two. Repeated episodes of bronchitis may result in lung damage -- for example, chronic bronchitis, recurrent pneumonias, or emphysema. Call the doctor if you develop increasing fever, shortness of breath, chest pain, bloody sputum, or otherwise worsen. If you have not improved at all after several days, contact the physician. Prescriptions: Cephalexin Monohydrate [Keflex 500 mg Capsule] 500 mg PO BID #20 capsule Referrals: SUE MAR PA-C [NO LOCAL MD] - Follow up as needed ED NIH Stroke Scale - NIH Stroke Scale When completed:: Protocol *: 1. NIH scale should be completed with appropriate accompanying assessment tools. *: 2. The NIH should reflect what the patient is capable of doing and should not be coached by the clinician. 1a. Level of Consciousness: 0=Alert;keenly responsive -: 1=Drowsy -: 2=Obtunded -: 3=Coma/unresponsive or reflex to noxious stimuli. 1a. Responses: 0 1b. Orientation Questions: a. What month is it? -: b. How old are you? -: 0=Answers both questions correctly. -: 1=Answers one question correctly or patient is intubated or has orotracheal trauma. -: 2=Answers neither question correctly. 1b. Responses: 0 1c. Response to commands: a. Open and close eyes? -: b. Ccie and release hand? -: Credit is given despite weakness. Demonstration of task is permitted. Substitute command if hands cannot be used. -: 0=Performs both tasks correctly -: 1=Performs one task correctly -: 2=Performs neither task correctly 1c. Responses: 0 2. Gaze: Establish eye contact and instruct patient to "Follow my finger" -: 0=Normal -: 1=Partial gaze palsy. Gaze is abnormal in one or both eyes, but where forced deviation or total gaze paresis is not present. -: 2=Forced deviation or total gaze paresis. 2. Responses: 0 3. Visual Dahl: Sees fingers in all four quadrants. -: 0=No visual loss. -: 1=Partial hemianopsia. -: 2=Complete hemianopsia. -: 3=Bilateral hemianopsia (including Cortical blindness) 3. Responses: 0 4. Facial Movement: Instruct patient to: -: a. Show me your teeth -: b. Raise your eyebrows -: c. Close your eyes -: d. Smile -: 0=Normal symmetrical movement -: 1=Minor paralysis (flattened nasolabial fold, asymmetry on smiling). -: 2=Partial paralysis (total or near total paralysis of lower face). -: 3=Complete paralysis of upper and lower face 4. Responses: 0 5. Motor functions (left arm): Alternate sides and extend each arm with palms down (90 degrees if sitting or 45 degrees for supine). -: 0=No drift;limb holds for full 10 seconds. -: 1=Drift; limb holds but drifts down before full 10 seconds, but does not hit bed. -: 2=Some effort against gravity; limb cannot get to or maintain position. -: 3=No effort against gravity; limb falls. -: 4=No movement. -: UN=Amputation, joint fusion, explain in comments. 5. Responses (left arm): 0 5. Motor Functions (right arm): Alternate sides and extend each arm with palms down (90 degrees if sitting or 45 degrees for supine). -: 0=No drift;limb holds for full 10 seconds. -: 1=Drift; limb holds but drifts down before full 10 seconds, but does not hit bed. -: 2=Some effort against gravity; limb cannot get to or maintain position. -: 3=No effort against gravity; limb falls. -: 4=No movement. -: UN=Amputation, joint fusion, explain in comments. 5. Responses (right arm): 0 6. Motor Functions (left leg): With patient lying supine, alternate sides and extend each leg (30 degrees always while supine). -: 0=No drift, leg holds position for full 5 seconds -: 1=Drift; leg falls before full 5 seconds but does not hit bed. -: 2=Some effort against gravity, leg falls to bed but some effort against gravity. -: 3=No effort against gravity, leg falls to bed immediately. -: 4=No movement. -: UN=Amputation, joint fusion; explain in comments. 6. Responses (left leg): 0 6. Motor Functions (right leg): With patient lying supine, alternate sides and extend each leg (30 degrees always while supine). -: 0=No drift, leg holds position for full 5 seconds -: 1=Drift; leg falls before full 5 seconds but does not hit bed. -: 2=Some effort against gravity, leg falls to bed but some effort against gravity. -: 3=No effort against gravity, leg falls to bed immediately. -: 4=No movement. -: UN=Amputation, joint fusion; explain in comments. 6. Responses (right leg): 0 7. Limb Ataxia: With eyes open instruct patient to: -: a. "Touch your finger to your nose". -: b. "Touch your heel to your nolan" -: 0=Absent -: 1=Present in one limb. -: 2=Present in two limbs. -: UN=Amputation or joint fusion; explain in comments. 7. Responses: 0 8. Sensory: Test sensation using pinprick or noxious stimuli. Test as many body parts as possible. -: 0=Normal;no sensory loss -: 1=Mile to moderate sensory loss (patient feels pin prick but is less sharp on affected side). -: 2=Severe or total sensory loss. 8. Responses: 0 9. Best Language: Instruct patient to: -: a. "Describe what you see in this picture." -: b. "Name the items in this picture." -: c. "Read these sentences." -: 0=No aphasia, normal -: 1=Mild to moderate aphasia. -: 2=Severe aphasia -: 3=Mute, global aphasia, no usable speech or auditory comprehension. 9. Responses: 0 - Patient has a very low NIH scale score of 0. Patient's sy mptoms had resolved with right arm weakness pain prior to arrival. 10. Articulation, Dysarthia: Instruct patient to: -: "Read these words" or "Repeat these words" -: 0=Normal -: 1=Mild to moderate; patient may slur some words but can be understood without difficulty. -: 2=Severe; patients speech so slurred as to be unintelligible in the absence of dysphasia. -: UN=Intubated or other physical barrier, explain in comments. 10. Responses: 0 11. Extinction or inattention: 0=No abnormality -: 1= Visual, tactile, auditory, spatial, or personal inattention or extinction to bilateral simulation in one or the sensory modalities. -: 2=Profound jefferson-inattention or jefferson-inattention to more than one modality; does not recognize own hand. 11. Responses: 0 Total Score: 0
[2019-04-27 14:37] LABS: ALBUMIN 4.2 g/dL (3.5-5.0); ALKALINE PHOSPHATASE 89 U/L (38-126); ANION GAP 10 (5-19); ASPARTATE AMINO TRANSFERASE 17 U/L (14-36); BILIRUBIN,DIRECT 0.2 mg/dL (0.0-0.4); BILIRUBIN,TOTAL 0.4 mg/dL (0.2-1.3); BLOOD UREA NITROGEN 17 mg/dL (7-20); CALCIUM 9.7 mg/dL (8.4-10.2); CARBON DIOXIDE 30 mmol/L (22-30); CHLORIDE 100 mmol/L (98-107); GLUCOSE 188 mg/dL (75-110); POTASSIUM 4.4 mmol/L (3.6-5.0); TOTAL PROTEIN 7.3 g/dL (6.3-8.2)
[2019-04-27] MEDS ORDERED: NORMAL SALINE 500 ML IV ONE (15:32)
--- NOTE | 2019-04-27 16:30 | RADIOLOGY REPORT (SQ) ---
EXAM DESCRIPTION: CT HEAD WITHOUT COMPLETED DATE/TIME: 04/27/2019 4:05 pm REASON FOR STUDY: rightr arm weakness COMPARISON: None. TECHNIQUE: Axial images acquired through the brain without intravenous contrast. Images reviewed wi th bone, brain and subdural windows. Additional sagittal and coronal reconstructions were generated. Images stored on PACS. All CT scanners at this facility use dose modulation, iterative reconstruction, and/or weight based d osing when appropriate to reduce radiation dose to as low as reasonably achievable (ALARA). [facility]: Dose Right [facility]: CareDose [facility]: Dose Right [facility]: Teradose 4D [facility]: DevZuz RADIATION DOSE: CT Rad equipment meets quality standard of care and radiation dose reduction techniq ues were employed. CTDIvol: 53.2 mGy. DLP: 1044 mGy-cm. mGy. LIMITATIONS: None. FINDINGS: VENTRICLES: Prominent. CEREBRUM: No masses. No hemorrhage. No midline shift. Areas of low density in the white matter mos t likely due to chronic micro-vascular ischemic change. No evidence for acute infarction. CEREBELLUM: No masses. No hemorrhage. No alteration of density. No evidence for acute infarction. EXTRAAXIAL SPACES: Mild age-related involutional change. No fluid collections. No masses. ORBITS AND GLOBE: No intra- or extraconal masses. Normal contour of globe without masses. CALVARIUM: No fracture. PARANASAL SINUSES: Fluid in the maxillary sinuses. SOFT TISSUES: No mass or hematoma. OTHER: No other significant finding. IMPRESSION: MILD CHRONIC CHANGES OF ATROPHY AND MICROVASCULAR ISCHEMIA. NO ACUTE PROCESS. EVIDENCE OF ACUTE STROKE: NO. TECHNICAL DOCUMENTATION: JOB ID: [id number] Quality ID # [id number]: Final reports with documentation of one or more dose reduction techniques (e.g., Au tomated exposure control, adjustment of the mA and/or kV according to patient size, use of iterative reconstruction technique) 2010 [employer]- All Rights Reserved Reading location - IP/workstation name: [email or web address]
[2019-04-27 17:55] LABS: APPEARANCE,URINE SLIGHTLY-CLOUDY; BILIRUBIN,URINE NEGATIVE (NEGATIVE); COLOR,URINE YELLOW; GLUCOSE, URINE NEGATIVE (NEGATIVE); KETONES,URINE NEGATIVE (NEGATIVE); LEUKOCYTE ESTERASE,URINE SMALL (NEGATIVE); NITRITE,URINE POSITIVE (NEGATIVE); PROTEIN,URINE NEGATIVE (NEGATIVE); URINE SPECIFIC GRAVITY 1.021; UROBILINOGEN,URINE NEGATIVE mg/dL (<2.0)
[2019-04-27 17:58] LABS: TRICHOMONAS, URINE NO /HPF
--- NOTE | 2019-04-27 18:27 | ER Document Report ---
ED NIH Stroke Scale - NIH Stroke Scale When completed:: Protocol - Patient has a very low NIH scale of 0 as her right arm symptoms had resolved prior to arrival to the ED. *: 1. NIH scale should be completed with appropriate accompanying assessment tools. *: 2. The NIH should reflect what the patient is capable of doing and should not be coached by the clinician. 1a. Level of Consciousness: 0=Alert;keenly responsive -: 1=Drowsy -: 2=Obtunded -: 3=Coma/unresponsive or reflex to noxious stimuli. 1a. Responses: 0 1b. Orientation Questions: a. What month is it? -: b. How old are you? -: 0=Answers both questions correctly. -: 1=Answers one question correctly or patient is intubated or has orotracheal trauma. -: 2=Answers neither question correctly. 1b. Responses: 0 1c. Response to commands: a. Open and close eyes? -: b. [employer] Instructor and release hand? -: Credit is given despite weakness. Demonstration of task is permitted. Substitute command if hands cannot be used. -: 0=Performs both tasks correctly -: 1=Performs one task correctly -: 2=Performs neither task correctly 1c. Responses: 0 2. Gaze: Establish eye contact and instruct patient to "Follow my finger" -: 0=Normal -: 1=Partial gaze palsy. Gaze is abnormal in one or both eyes, but where forced deviation or total gaze paresis is not present. -: 2=Forced deviation or total gaze paresis. 2. Responses: 0 3. Visual Dahl: Sees fingers in all four quadrants. -: 0=No visual loss. -: 1=Partial hemianopsia. -: 2=Complete hemianopsia. -: 3=Bilateral hemianopsia (including Cortical blindness) 3. Responses: 0 4. Facial Movement: Instruct patient to: -: a. Show me your teeth -: b. Raise your eyebrows -: c. Close your eyes -: d. Smile -: 0=Normal symmetrical movement -: 1=Minor paralysis (flattened nasolabial fold, asymmetry on smiling). -: 2=Partial paralysis (total or near total paralysis of lower face). -: 3=Complete paralysis of upper and lower face 4. Responses: 0 5. Motor functions (left arm): Alternate sides and extend each arm with palms down (90 degrees if sitting or 45 degrees for supine). -: 0=No drift;limb holds for full 10 seconds. -: 1=Drift; limb holds but drifts down before full 10 seconds, but does not hit bed. -: 2=Some effort against gravity; limb cannot get to or maintain position. -: 3=No effort against gravity; limb falls. -: 4=No movement. -: UN=Amputation, joint fusion, explain in comments. 5. Responses (left arm): 0 5. Motor Functions (right arm): Alternate sides and extend each arm with palms down (90 degrees if sitting or 45 degrees for supine). -: 0=No drift;limb holds for full 10 seconds. -: 1=Drift; limb holds but drifts down before full 10 seconds, but does not hit bed. -: 2=Some effort against gravity; limb cannot get to or maintain position. -: 3=No effort against gravity; limb falls. -: 4=No movement. -: UN=Amputation, joint fusion, explain in comments. 5. Responses (right arm): 0 6. Motor Functions (left leg): With patient lying supine, alternate sides and extend each leg (30 degrees always while supine). -: 0=No drift, leg holds position for full 5 seconds -: 1=Drift; leg falls before full 5 seconds but does not hit bed. -: 2=Some effort against gravity, leg falls to bed but some effort against gravity. -: 3=No effort against gravity, leg falls to bed immediately. -: 4=No movement. -: UN=Amputation, joint fusion; explain in comments. 6. Responses (left leg): 0 6. Motor Functions (right leg): With patient lying supine, alternate sides and extend each leg (30 degrees always while supine). -: 0=No drift, leg holds position for full 5 seconds -: 1=Drift; leg falls before full 5 seconds but does not hit bed. -: 2=Some effort against gravity, leg falls to bed but some effort against gravity. -: 3=No effort against gravity, leg falls to bed immediately. -: 4=No movement. -: UN=Amputation, joint fusion; explain in comments. 7. Limb Ataxia: With eyes open instruct patient to: -: a. "Touch your finger to your nose". -: b. "Touch your heel to your nolan" -: 0=Absent -: 1=Present in one limb. -: 2=Present in two limbs. -: UN=Amputation or joint fusion; explain in comments. 8. Sensory: Test sensation using pinprick or noxious stimuli. Test as many body parts as possible. -: 0=Normal;no sensory loss -: 1=Mile to moderate sensory loss (patient feels pin prick but is less sharp on affected side). -: 2=Severe or total sensory loss. 9. Best Language: Instruct patient to: -: a. "Describe what you see in this picture." -: b. "Name the items in this picture." -: c. "Read these sentences." -: 0=No aphasia, normal -: 1=Mild to moderate aphasia. -: 2=Severe aphasia -: 3=Mute, global aphasia, no usable speech or auditory comprehension. 10. Articulation, Dysarthia: Instruct patient to: -: "Read these words" or "Repeat these words" -: 0=Normal -: 1=Mild to moderate; patient may slur some words but can be understood without difficulty. -: 2=Severe; patients speech so slurred as to be unintelligible in the absence of dysphasia. -: UN=Intubated or other physical barrier, explain in comments. 10. Responses: 0 11. Extinction or inattention: 0=No abnormality -: 1= Visual, tactile, auditory, spatial, or personal inattention or extinction to bilateral simulation in one or the sensory modalities. -: 2=Profound jefferson-inattention or jefferson-inattention to more than one modality; does not recognize own hand. 11. Responses: 0 Total Score: 0
[2019-04-27 19:29] VITALS: BP 134/73
--- NOTE | 2019-04-27 19:30 | EKG REPORT ---
SEVERITY:- ABNORMAL ECG - ATRIAL-PACED COMPLEXES FIRST DEGREE AV BLOCK : Confirmed by: Roman Fraser MD 27-Apr-2019 19:29:01
== END 2019-04-27 18:42 | disposition home or self-care (01) ==
LOC: ER 12:39
DX: J20.9 Acute bronchitis, unspecified (principal); R53.1 Weakness; N30.00 Acute cystitis without hematuria; R07.9 Chest pain, unspecified; M25.511 Pain in right shoulder; I25.10 Atherosclerotic heart disease of native coronary artery without angina pectoris; I10 Essential (primary) hypertension; E11.9 Type 2 diabetes mellitus without complications; Z86.73 Personal history of transient ischemic attack (TIA), and cerebral infarction without residual deficits; Z79.899 Other long term (current) drug therapy; Z88.6 Allergy status to analgesic agent; Z88.5 Allergy status to narcotic agent; Z88.8 Allergy status to other drugs, medicaments and biological substances; Z91.048 Other nonmedicinal substance allergy status; Z88.2 Allergy status to sulfonamides
CPT/HCPCS: 93005; 94640; 99285; 36415; 85025; 80053; 81001; 84484; 71046; 70450; 93010; A9270; J7620

== ENCOUNTER → 2019-05-01 | Outpatient (CLI) | payer MEDICARE, OTHER ==
--- NOTE | 2019-05-01 09:09 | WOMENS IMAGING REPORT ---
EXAM DESCRIPTION: 3D SCREENING MAMMO BILAT COMPLETED DATE/TIME: 05/01/2019 8:43 am REASON FOR STUDY: Z12.31 SCREENING MAMMO Z12.31 ENCNTR SCREEN MAMMOGRAM FOR MALIGNANT NEOPLASM OF B RE COMPARISON: Digital bilateral screening mammograms dated 03/22/2018, 10/28/2016 and 10/23/2015. EXAM PARAMETERS: Standard craniocaudal and mediolateral oblique views of each breast recorded using digital acquisition. Read with the assistance of CAD. .[facility] - [employer] Program Instructor Version 9.2 LIMITATIONS: None. FINDINGS: Findings present which are benign by mammographic criteria. No suspicious masses, calcifi cations or architectural distortion. Pertinent benign findings: Stable calcifications in the breast. Partially visualize cardiac pacemak er device overlies the left axilla obscuring detail somewhat. Benign mammographic findings may include one or more of the following: Smooth masses, popcorn/rim/co arse calcifications, asymmetries, post-procedure changes, and lesions with long-standing stability. IMPRESSION: BENIGN MAMMOGRAPHIC FINDINGS. BIRADS 2 BREAST DENSITY: b. There are scattered areas of fibroglandular density. BIRAD: ASSESSMENT: 2 BENIGN FINDING(S) RECOMMENDATION: 1. ROUTINE SCREENING COMMENT: The patient has been notified of the results by letter per [place] requirements. Additional no tification policies are in place for contacting patient with suspicious or incomplete findings. Quality ID #[id number]: The [employer] recommends an annual screening mammogram for women aged 40 years or over. This facility utilizes a reminder system to ensure that all patients receive reminder letters, and/or direct phone calls for appointments. This includes reminders for routine scr eening mammograms, diagnostic mammograms, or other Breast Imaging Interventions when appropriate. Th is patient will be placed in the appropriate reminder system. TECHNICAL DOCUMENTATION: FINDING NUMBER: (1) ASSESSMENT: (1) JOB ID: [id number] [employer]- All Rights Reserved Reading location - IP/workstation name: [email or web address]
== END ==
LOC: WI 08:05
PROVIDERS: ATTEND Physician Assistant
DX: Z12.31 Encounter for screening mammogram for malignant neoplasm of breast (principal)
CPT/HCPCS: 77063; 77067

== ENCOUNTER → 2020-05-09 | Outpatient (CLI) | payer MEDICARE, OTHER ==
--- NOTE | 2020-05-09 10:23 | WOMENS IMAGING REPORT ---
EXAM DESCRIPTION: 3D SCREENING MAMMO BILAT IMAGES COMPLETED DATE/TIME: 05/09/2020 7:50 am REASON FOR STUDY: ROUTINE BILATERAL SCREENING;Z12.31 Z12.31 ENCNTR SCREEN MAMMOGRAM FOR MALIGNANT N EOPLASM OF SHAD COMPARISON: Priors dating back to 2012 EXAM PARAMETERS: Views: Standard craniocaudal and mediolateral oblique views of each breast recorded using digital acquisition and breast tomosynthesis. Read with the assistance of CAD. .[employer] - [employer] Floor Attendant Version 9.2 LIMITATIONS: Left battery pack. FINDINGS: No suspicious masses, suspicious calcifications or architectural distortion. No areas of c oncern. IMPRESSION: NEGATIVE MAMMOGRAM. BIRADS 1. BREAST DENSITY: b. There are scattered areas of fibroglandular density. BIRAD: ASSESSMENT: 1 NEGATIVE RECOMMENDATION: ROUTINE SCREENING COMMENT: The patient has been notified of the results by letter per MQSA requirements. Additional no tification policies are in place for contacting patient with suspicious or incomplete findings. Quality ID #225: The [employer] recommends an annual screening mammogram for women aged 40 years or over. This facility utilizes a reminder system to ensure that all patients receive reminder letters, and/or direct phone calls for appointments. This includes reminders for routine scr eening mammograms, diagnostic mammograms, or other Breast Imaging Interventions when appropriate. Th is patient will be placed in the appropriate reminder system. TECHNICAL DOCUMENTATION: FINDING NUMBER: (1) ASSESSMENT: (1) JOB ID: [id number] [employer]- All Rights Reserved Reading location - IP/workstation name: [email or web address]
== END ==
LOC: WI 07:31
PROVIDERS: ATTEND Internal Medicine
DX: Z12.31 Encounter for screening mammogram for malignant neoplasm of breast (principal)
CPT/HCPCS: 77063; 77067